=== PATIENT | male | born 1940 | race Caucasian/White ===

== ENCOUNTER 2018-09-24 10:45 | Observation (INO) | payer BC ==
[2018-09-24] MEDS ORDERED: NS 0.9% 1000 ML** 1,000 ML IV ONE (10:59)
[2018-09-24] MEDS ORDERED: Aspirin 81 mg CHEW TAB* 81 MG TAB.CHEW PO ONE (10:59)
--- NOTE | 2018-09-24 11:04 | ED ---
Syncope/Near Syncope - HPI Summary HPI Summary: This patient is a 78 year old M brought to ED via EMS with a chief complaint of chest pain and syncope since 1000 this morning. Patient was sitting at a table at [employer] when per his he slumped over, was really pale, and seemed to be gagging. She states he had a little bit of cereal this morning. The patient does not remember the syncopal event. Per EMS, bystander gave him NTG after the event and BP was 70s/40s. Patient declined aspirin by EMS as he did not want to chew the tablet. When he passed out, bystanders stated they could not detect a pulse and the patient was not breathing. Patient had an AR 10 years ago and a triple bypass at [facility]. He does not use O2 at home. The last time patient saw a mechanical reliability engineer was a couple years ago. Patient arrives in ED at 1045. Dr Waterman is at bedside at 1048. Patient reports chest pain starting at [facility] this morning but no pain last night. Patient denies chest pain in the room. The patient rates the pain 0/10 in severity. Symptoms aggravated by nothing. Symptoms alleviated by nothing. PMHx of HTN and AR 10 years ago but no DM. PSHx triple bypass following AR. Patient does not drink alcohol, use substances, or smoke tobacco. - History Of Current Complaint Hx Obtained From: Patient, Family/Bakery Associate, EMS Onset/Duration: Sudden Onset, Resolved Timing: Frequency Of Episodes - 1 Context: Witnessed, Loss Of Consciousness Activity At Onset: At Rest - Sitting at table Associated Head Trauma: No Aggravating Factor(s): Nothing Alleviating Factor(s): Nothing Associated Signs And Symptoms: Chest Pain - Resolved in room, Other - Pale and gagging, per - Allergies/Home Medications Allergies/Adverse Reactions: Allergies Allergy/AdvReac Type Severity Reaction Status Date / Time No Known Allergies Allergy Verified 09/24/18 11:09 Home Medications: Home Medications Amlodipine Besylate [Norvasc] 10 mg PO DAILY 09/24/18 [History Confirmed ] Carvedilol 6.25 mg PO BID 09/24/18 [History Confirmed 09/24/18] Isosorbide Mononitrate [Isosorbide Mononitrate ER] 240 mg PO DAILY 09/24/18 [ History Confirmed 09/24/18] Levothyroxine Sodium 50 mcg PO DAILY 09/24/18 [History Confirmed 09/24/18] Metformin HCl 500 mg PO DAILY 09/24/18 [History Confirmed 09/24/18] Rosuvastatin Calcium 20 mg PO DAILY 09/24/18 [History Confirmed 09/24/18] Spironolactone 25 mg PO DAILY 09/24/18 [History Confirmed 09/24/18] PMH/Surg Hx/FS Hx/Imm Hx Endocrine/Hematology History: Reports: Hx Diabetes Cardiovascular History: Reports: Hx Hypertension Denies: Hx Pacemaker/ICD, Other Cardiovascular Problems/Disorders - Social History Alcohol Use: None Hx Substance Use: No Substance Use Type: Reports: None Hx Tobacco Use: No Smoking Status (MU): Never Smoked Tobacco Review of Systems ENT: Other - Gagging Positive: Chest Pain Skin: Other - Pale Positive: Syncope All Other Systems Reviewed And Are Negative: Yes Physical Exam - Summary Physical Exam Summary: Appearance: Well appearing, no pain distress Skin: warm, dry, reflects adequate perfusion Head/face: normal Eyes: EOMI, TIANA ENT: normal Neck: supple, non-tender Respiratory: CTA, breath sounds present Cardiovascular: bradycardia Abdomen: non-tender, soft Musculoskeletal: normal, strength/ROM intact Neuro: normal, sensory motor intact, A&Ox3 GCS: 15 Triage Information Reviewed: Yes Vital Signs On Initial Exam: Initial Vitals Pulse Resp BP Pulse Ox 42 13 119/70 96 09/24/18 10:58 09/24/18 10:58 09/24/18 10:58 09/24/18 10:58 Vital Signs Reviewed: Yes Diagnostics - Laboratory Result Diagrams: 09/24/18 11:06 09/24/18 11:06 Lab Statement: Any lab studies that have been ordered have been reviewed, and results considered in the medical decision making process. - Radiology CXR Radiology Interpretation Completed By: Radiologist Summary of Radiographic Findings: Cardiomegaly without evidence for pulmonary edema. Dr. Waterman has reviewed this radiology report. - CT Brain CT Interpretation Completed By: ED Physician Summary of CT Findings: 1. No acute intracranial process evident. 2. Involutional change, chronic small vessel ischemic disease, and chronic appearing small RIGHT basal ganglia and LEFT caudate head lacunar infarcts, and chronic appearing larger bilateral cerebellar infarcts. Dr. Waterman has reviewed this radiology report. - EKG 1046 Cardiac Rate: Bradycardia - 41 BPM EKG Rhythm: Sinus Bradycardia Summary of EKG Findings: Sinus bradycardia at 41 BPM, ST changes in inferior leads. Re-Evaluation - Re-Evaluation First Eval Re-Evaluation Time: 12:28 Comment: Discussed results with patient. Patient will be admited to [facility] for further cardiology workup. Patient understands and agrees with this plan. Course/Dx Course Of Treatment: This patient is a 78 year old M brought to ED via EMS with a chief complaint of chest pain and syncope since 1000 this morning. Patient arrives in ED at 1045. Dr. Waterman is at bedside at 1048. Patient received NTG DIN[facility] BRAKEMAN. EKG reveals sinus bradycardia at 41 BPM, ST changes in inferior leads. In the ED course, patient received aspirin and fluids. Consult with Dr. Kumar, mechanical reliability engineer, requested at 1105. Consulted with Dr. Kumar at 1118 who agrees that the EKG reveals no STEMI. Blood work obtained. Brain CT revealed 1. No acute intracranial process evident. 2. Involutional change, chronic small vessel ischemic disease, and chronic appearing small RIGHT basal ganglia and LEFT caudate head lacunar infarcts, and chronic appearing larger bilateral cerebellar infarcts. CXR revealed cardiomegaly without evidence for pulmonary edema. I ruled out acute coronary syndrome (ACS). I discussed the patient case with Dr. Krishna Real, hospitalist, who accepted the patient for admission to [facility] for further cardiology workup. The patient will be admitted with diagnosis of syncope, symptomatic bradycardia, and hypotension. I discussed results with patient. The patient agrees with this plan. - Diagnoses Differential Diagnosis/HQI/PQRI: Positive: Cerebral Vascular Accident, Coronary Artery Disease, Dysrhythmia, Hypovolemia, Myocardial Infarction, Vasovagal Episode Provider Diagnoses: Syncope, Symptomatic bradycardia, Hypotension - Physician Notifications Discussed Care of Patient With: Donna Kumar Time Discussed With Above Provider: 11:18 Instructed by Provider To: Other - Dr. Kumar agrees that the EKG reveals no STEMI. 1225: consulted with Dr. Real, hospitalist, who accepted the patient for admission to [facility] for further cardiology workup. - Critical Care Time Critical Care Time: 30-74 min - 30 min Discharge - Sign-Out/Discharge Documenting (check all that apply): Patient Departure - Admit Patient Received Moderate/Deep Sedation with Procedure: No - Discharge Plan Condition: Good Disposition: ADMITTED TO [facility] Referrals: No Primary Care Phys,NOPCP [Primary Care Provider] - - Billing Disposition and Condition Condition: GOOD Disposition: Admitted to [facility] - Attestation Statements Document Initiated by Yousuf: Yes Documenting Scribe: Lavon Chaudhari Provider For Whom Yousuf is Documenting (Include Credential): Chavo Waterman MD Scribe Attestation: ILavon, scribed for Chavo Waterman MD on 09/24/18 at 1259. Scribe Documentation Reviewed: Yes Provider Attestation: The documentation as recorded by the mariselaibLavon abdul accurately reflects the service I personally performed and the decisions made by me, Chavo Waterman MD Status of Scribe Document: Viewed
[2018-09-24 11:13] LABS: ABS Basophils 0.1 10^3/ul (0-0.2); ABS Eosinophils 0.3 10^3/ul (0-0.6); ABS Lymphocytes 1.2 10^3/ul (1.0-4.8); ABS Monocytes 0.7 10^3/ul (0-0.8); ABS Neutrophils 8.8 10^3/ul (1.5-7.7); Eosinophil % 2.3 %; Hematocrit 36 % (42-52); Hemoglobin 11.3 g/dL (14.0-18.0); Lymphocyte % 10.9 %; Mean Corpuscular HGB Conc 31 g/dL (31-36); Mean Corpuscular Hemoglobin 24 pg (27-31); Mean Corpuscular Volume 78 fL (80-94); Mean Platelet Volume 7.6 fL (7.4-10.4); Platelet Count 290 10^3/uL (150-450); Red Blood Count 4.63 10^6 /uL (4.18-5.48); Red Cell Distribution Width 19 % (10.5-15)
[2018-09-24 11:30] LABS: Albumin/Globulin Ratio 1.5 (1-3); BUN/Creatinine Ratio 10.9 (8-20); Calcium 8.8 mg/dL (8.6-10.3); EGFR African American 49.2 (>60); EGFR Non-African American 40.7 (>60); Globulin 2.7 g/dL (2-4); Magnesium 2.3 mg/dL (1.9-2.7); Total Bilirubin 0.6 mg/dL (0.2-1.0); Total Protein 6.7 g/dL (6.4-8.9)
[2018-09-24 11:32] LABS: Potassium 5.3 mmol/L (3.5-5.0); Troponin I 0.01 ng/mL (<0.04)
[2018-09-24 11:55] LABS: Activated Partial Thrombo Time 25.7 seconds (26.0-36.3); INR 1.03 (0.82-1.09)
[2018-09-24] MEDS ORDERED: Enoxaparin(*) 40 MG/0.4 ML SYR SUBCUT SCH (14:00)
--- NOTE | 2018-09-24 14:07 | HP ---
History of Present Illness - History of Present Illness Reason for Visit: syncope History of Present Illness: Patient is 78 year old man with history of coronary artery disease, who was seated in [employer] this morning when he suddenly slumped over in his chair. He has no memory of this, but his was present, she states he was unconscious for at least 30 seconds. He states he may have had some chest discomfort prior to the syncope. When he was lowered to ground, and EMS arrived, they found him with systolic BP around 70 and HR around 40. He is poor historian, but he and deny recent medication changes. He has not seen amusement machine mechanic since 2018, and cannot remember that doctor's name. He did go to the [facility] clinic in [place], and had cardiac testing ordered in June that was never completed. Patient reports arthritis pain in LT knee, which he keeps coming back to as possible cause of syncope. PCP: Shahrzad Abrams at NH in [place] - Past Medical History Cardiac: CAD Pulmonary: Asthma SQL ENGINEER: Dementia - noted in last 6 months Musculoskeletal: Osteoarthritis - LT knee, severe ENT: Allergic rhinitis Endocrine: Other - impaired fasting glucose - Past Surgical History Past Surgical History: CABG - 2008, [facility], Dr. 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 Alcohol: None Drugs: None Lives: With Family - , 3 children Review of Systems - Measurements Intake and Output: Intake and Output Last 24 Hours 09/22/18 09/23/18 09/24/18 09/25/18 06:59 06:59 06:59 06:59 Intake Total 1000 Balance 1000 Weight 86.183 kg Intake: IV Fluids 1000 - Review of Systems General Comments: poor historian Constitutional Symptoms: Positive: Weakness Dermatology: Positive: Normal HEENT: Positive: Normal Eyes: Positive: Normal Thyroid: Positive: Normal Pulmonary: Positive: Normal Cardiology: Positive: Chest Pain Negative: Palpitations Gastroenterology: Positive: Normal Negative: Nausea, Vomiting, Diarrhea Genital - Urinary: Positive: Normal Musculoskeletal: Positive: Joint Pain, Arthritis Endocrinology: Positive: Hyperglycemia Neurology: Positive: Change in Memory, Hx of Stroke\TIA Psychiatry: Positive: Normal Objective Active Medications: Home Medications, reviewed with [facility] Amlodipine Besylate (Norvasc Tab*) 10 mg PO DAILY [facility] Isosorbide Mononitrate (Imdur Er Tab*) 240 mg PO DAILY [facility] Levothyroxine Sodium (Synthroid Tab*) 50 mcg PO DAILY [facility] Metformin HCl (Glucophage*) 500 mg PO DAILY [facility] Rosuvastatin Calcium (Crestor (Nf)) 20 mg PO QPM [facility] Spironolactone (Aldactone Tab*) 25 mg PO DAILY [facility] Carvedilol 6.25 mg PO BID 09/24/18 Multivitamin with Minerals [One Daily Complete] 1 tab PO DAILY 09/24/18 Vital Signs - 8 hr 09/24/18 09/24/18 09/24/18 10:58 11:07 11:14 Temperature 35.8 C Pulse Rate 42 53 41 Respiratory 13 16 14 Rate Blood Pressure 119/70 119/70 107/60 (mmHg) O2 Sat by Pulse 96 96 94 Oximetry 09/24/18 09/24/18 09/24/18 13:00 13:19 13:24 Temperature Pulse Rate 52 50 51 Respiratory 21 17 14 Rate Blood Pressure 110/63 119/68 (mmHg) O2 Sat by Pulse 97 98 97 Oximetry 09/24/18 09/24/18 13:28 13:33 Temperature Pulse Rate 54 56 Respiratory 18 Rate Blood Pressure 118/67 118/67 (mmHg) O2 Sat by Pulse 98 Oximetry Oxygen Devices in Use Now: None Appearance: no acute distress Eyes: No Scleral Icterus Ears/Nose/Mouth/Throat: NL Teeth, Lips, Gums Neck: NL Appearance and Movements; NL JVP, Trachea Midline Respiratory: Symmetrical Chest Expansion and Respiratory Effort, Clear to Auscultation Cardiovascular: NL Sounds; No Murmurs; No JVD, RRR, - - absent DP pulses Abdominal: NL Sounds; No Tenderness; No Distention, No Hepatosplenomegaly Lymphatic: No Cervical Adenopathy Extremities: No Edema Skin: No Rash or Ulcers Neurological: Alert and Oriented x 3, - - tangential historian Lines/Tubes/Other Access: Clean, Dry and Intact Peripheral IV Nutrition: Taking PO's Result Diagrams: 09/24/18 11:06 09/24/18 11:06 Additional Lab and Data: Laboratory Tests 09/24/18 09/24/18 09/24/18 11:06 11:06 11:06 INR (Anticoag Therapy) 1.03 APTT 25.7 L Glucose 262 H Lactic Acid 1.7 Magnesium 2.3 Troponin I 0.01 TSH 8.03 H Diagnostic Imaging: CXR: cardiomegaly, no infiltrates Head CT: old lacunes, involutional changes EKG Data: bradycardic, [address] elevations III, aVF, T-wave inversion I, aVL, flat T-waves V5-6 Assess/Plan/Problems-Billing Assessment: 78 year old man with syncope in setting of bradycardia - Patient Problems (1) Syncope and collapse Current Visit: Yes Status: Acute Priority: High Code(s): R55 - SYNCOPE AND COLLAPSE SNOMED Code(s): 565997644 Comment: -Differential normally includes tachy or rasheed arrhythmia, but clearly has symptomatic bradycardia. Differential also includes seizure, vagal episode. -Will observe on telemetry, hold coreg. -Discussed with Dr. Kumar, she will see patient for consult (2) Dementia Current Visit: Yes Status: Acute Priority: Medium Code(s): F03.90 - UNSPECIFIED DEMENTIA WITHOUT BEHAVIORAL DISTURBANCE SNOMED Code(s): 80647366 Comment: -discussed with -will defer treatment to primary care (3) Coronary arteriosclerosis after coronary artery bypass grafting Current Visit: Yes Status: Acute Priority: Medium Code(s): I25.810 - ATHEROSCLEROSIS OF CABG W/O ANGINA PECTORIS SNOMED Code(s): 124685314640566 Comment: -Clinically stable from ischemic point of view -Will trend troponins due to EKG abnormalities -Will obtain records from [facility] system. (4) Hypothyroidism Current Visit: Yes Status: Acute Priority: Medium Code(s): E03.9 - HYPOTHYROIDISM, UNSPECIFIED SNOMED Code(s): 09946967 Comment: -Appears undertreated -Levothyroxine increased. (5) DVT prophylaxis Current Visit: Yes Status: Acute Priority: Low Code(s): Z29.9 - ENCOUNTER FOR PROPHYLACTIC MEASURES, UNSPECIFIED SNOMED Code(s): 670218544 Comment: -SC lovenox Status and Disposition: observation
[2018-09-24 14:08] LABS: TSH (Thyroid Stimulating Horm) 8.03 mcIU/mL (0.34-5.60)
[2018-09-24] MEDS ORDERED: Atorvastatin* 40 MG TAB PO SCH (18:00)
--- NOTE | 2018-09-24 20:35 | CONS ---
CC: Hospitalist Service; [facility] in [place], [place]. CARDIOLOGY CONSULTATION: DATE OF CONSULT: 09/24/18 REASON FOR CONSULTATION: Loss of consciousness and coronary artery disease. The patient's chief complaint is that he told he fainted. HISTORY OF PRESENT ILLNESS: Mr. Robb is a 78-year-old gentleman followed in the [facility] system and I do not have old records for him He has a history of multivessel bypass surgery at the [facility], per hospitalist report in 2008. The patient is a poor historian, has some trouble finding his words and very slow to respond. He admits he did not remember the events of this morning. He states he went to [facility]. He thinks he might have been given a nitroglycerin from another person with heart disease, but he is uncertain. Currently, he states he has some left sided chest pain and knee pain, and he told me he the knee pain is chronic in response to a beanbag heating pad. He tells me he was using the beanbag pad while at [facility]. The patient denies shortness of breath, nausea, diaphoresis or any other complaints at the time I talked to him. PAST MEDICAL HISTORY: The patient has a past medical history of coronary artery disease with bypass surgery in 2008. 1. Dementia. 2. Degenerative arthritis of the left knee. 3. Hyperglycemia. 4. Asthma. 5. Hypothyroid disease. 6. Dyslipidemia. MEDICATIONS: Outpatient medications obtained by calling [facility] include: 1. MultiVite 2. Aldactone 25 mg a day. 3. Crestor 20 mg a day. 4. Metformin 500 mg a day. 5. Levothyroxine 50 mcg a day. 6. Coreg 6.25 mg b.i.d. 7. Amlodipine 10 mg a day. 8. Isosorbide mononitrate 240 mg a day. Current inpatient medications include: 1. Amlodipine 10 mg a day, 2. Lipitor 40 mg a day. 3. Lovenox 40 mg q.24 hours. 4. Isosorbide 240 mg a day. 5. Levothyroxine 75 mcg a day. 6. Metformin 500 mg b.i.d. 7. Aldactone 25 mg a day. ALLERGIES: He has no known drug allergies. FAMILY HISTORY: Significant for early atherosclerotic heart disease with father and both brothers. SOCIAL HISTORY: Unable to be obtained directly from the patient, but according to Dr. Real's note when I believe his was there when he got this he was with 3 children. 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 REVIEW OF SYSTEMS: See history of present illness but no other complaints. No infection. He denies any recent changes in medication. He denies missing medications. He denies nausea, constipation, diarrhea, and trouble urinating. All other 11 point review of system was negative PHYSICAL EXAM: On exam, the patient is 5 feet 8 inches, weighs 190 pounds with a BMI of 29. Vital signs in the ambulance documented by the ambulance include blood pressure 91/46 with a pulse rate of 42, oxygen saturation 97%. Lowest blood pressure documented by the auto club travel counselor was 74/43 and a pulse of 39. Currently blood pressure 110/62, pulse is 52, oxygen saturation 98 on room air and he is afebrile. General Appearance: Short, very centripetally obese older gentleman lying at 30 degrees, appeared reasonably comfortable at rest. Psychologically, pleasant and cooperative, but very vague very slow to answer questions and clear expressive aphasia. Neurologically, see above. Oriented to the fact that he is in the hospital. I did not evaluate for time or person. Skin: Warm and dry, midline sternotomy scar well healed, no cyanosis. HEENT: Mucous membranes moist. Neck: Thick from obesity. Strong carotid pulses without audible bruit. Breath sounds were clear. No wheezing, rales or rhonchi. Coronary: S1, S2, regular, 2/6 murmur heard best in the left upper sternal border. Abdomen: Rotund, active bowel sounds, soft, nontender. No hepatosplenomegaly or masses appreciated. Lower extremities are free of edema. Musculoskeletal: Unable to reproduce left sided chest pain with palpation, nor was his knee tender to palpation. DIAGNOSTIC STUDIES/LAB DATA: A 12-lead ECG from the EMT shows sinus bradycardia with a long first degree AV block, incomplete right bundle branch block and flattened nonspecific ST changes. A 12-lead ECG done in the emergency room, 10:46 this morning shows sinus bradycardia 41 beats a minute, QRS axis -30, normal AV and IV conduction time. He has a R prime in V1. His QT interval is 437 milliseconds, corrected QTc is 444 milliseconds. Flattened T-waves and inverted T-waves in the lateral leads. No old EKGs to compare. Labs: White count 11, hemoglobin 11.3, hematocrit 36, mean cell volume 78, platelets 290. INR 1.03, PTT 26. Sodium 135, potassium 5.3, chloride 106, bicarb 23, glucose 262, BUN 18, creatinine 1.65. AST 13, ALT 12. TSH 8.03. Troponin #1 0.01, troponin #2 0.01, troponin #3 0.01. Chest x-ray from today shows cardiomegaly, no pulmonary edema Brain CT showed no acute process. It did show evidence of chronic small vessel disease and lacunar infarcts that appeared old. IMPRESSION AND PLAN: In summary, Mr. Robb is a 78-year-old gentleman with prior bypass surgery, atherosclerotic risks identified of diabetes, hypertension , morbid obesity, who had a witnessed syncopal episode at [facility] today of uncertain etiology. If the patient was hypotensive and bradycardic and is on medications that can lead to both of these. He is on a very high dose of Imdur and his medications also would be suggestive that he could have a cardiomyopathy. I agree with holding his Coreg for now. If his blood pressure is low, we could decrease his Imdur dose, but I would like to keep him. I agree with continuing medications for cardiomyopathy, spironolactone, his amlodipine dose may be able to be decreased as well. He may benefit from a pacemaker for sick sinus syndrome or tachy-rasheed syndrome , but I would like to see what his heart rate and blood pressure do off of Coreg prior to committing to pacer implantation as well as getting old medical records. Additionally, I would like to check his ejection fraction, evaluate for possible cardiomyopathy. For now, other than adjusting medications to optimize blood pressure and heart rate and checking an echo to evaluate ventricular function and valvular function , I have no additional acute recommendations. Additional recommendations will be made when these studies are available and old records are available. If the patient's pulse improves off Coreg I would recommend an out patient event monitor (external or implanted). Thank you for allowing me to assist in this very nice gentleman's care. [id number]/[facility] #: [id number] ISAEL
[2018-09-25] MEDS ORDERED: Al Hydrox/Mg Hydrox/Simet LIQ* 30 ML UDC PO PRN (00:44)
[2018-09-25] MEDS ORDERED: Levothyroxine TAB* 50 MCG TAB PO SCH (06:00)
[2018-09-25] MEDS ORDERED: Levothyroxine TAB* 75 MCG TAB PO SCH (06:00)
[2018-09-25 07:14] LABS: ABS Basophils 0.1 10^3/ul (0-0.2); ABS Eosinophils 0.1 10^3/ul (0-0.6); ABS Lymphocytes 1.5 10^3/ul (1.0-4.8); ABS Monocytes 0.8 10^3/ul (0-0.8); Eosinophil % 1.5 %; Hematocrit 33 % (42-52); Hemoglobin 10.5 g/dL (14.0-18.0); Lymphocyte % 15.3 %; Mean Corpuscular HGB Conc 32 g/dL (31-36); Mean Corpuscular Hemoglobin 25 pg (27-31); Mean Corpuscular Volume 77 fL (80-94); Mean Platelet Volume 7.9 fL (7.4-10.4); Platelet Count 245 10^3/uL (150-450); Red Blood Count 4.23 10^6 /uL (4.18-5.48); Red Cell Distribution Width 18 % (10.5-15); White Blood Count 9.5 10^3/uL (3.5-10.8)
[2018-09-25 07:39] LABS: BUN/Creatinine Ratio 16.4 (8-20); Calcium 8.4 mg/dL (8.6-10.3); EGFR African American 56.7 (>60); EGFR Non-African American 46.8 (>60); Potassium 4.3 mmol/L (3.5-5.0)
[2018-09-25] MEDS ORDERED: Spironolactone TAB* 25 MG PO SCH (09:00)
[2018-09-25] MEDS ORDERED: metFORMIN* 500 MG TAB PO SCH (09:00)
[2018-09-25] MEDS ORDERED: Isosorbide Mononitrate ER TAB* 60 MG PO SCH (09:00)
[2018-09-25] MEDS ORDERED: amLODIPine TAB* 5 MG PO SCH ×2 (09:00)
[2018-09-25] MEDS ORDERED: Levothyroxine TAB* 25 MCG TAB PO ONE (09:17)
--- NOTE | 2018-09-25 10:05 | ECHO ---
*[facility]* [place] [address] Fax #: [phone] Transthoracic Echocardiogram Patient: Clarisse, Height: 68.1 in / Hernan Gene 173 cm : 1940 Weight: 189.2 lb / Study Date: 09/25/2018 86 kg Age: 78 BP: 125 / 65 Gender: M BMI/BSA: 28.7 HR: 56 bpm kg/m^2 / 2.05 m^2 *Leasing Professional: Susan Hu [facility] *Referring Physician: * Donna Kumar MD *Reading Physician: * Donna Kumar MD Indications: Murmur. Syncope. History: Coronary artery disease. Risk factors: Dyslipidemia. Labs, prior tests, procedures, and surgery: Coronary artery bypass grafting. Conclusions Summary: 1. Left ventricle: The cavity size is at the upper limits of normal. Wall thickness is mildly to moderately increased. The estimated ejection fraction is 50-55%. Severe hypokinesis, focal at the apex of the inferior wall. 2. Right ventricle: Systolic function is normal. 3. Mitral valve: There is mild regurgitation. 4. Aortic valve: The valve is trileaflet with mild sclerosis and normal function. 5. Aorta: The proximal ascending aortic diameter is 3.6 cm, mildly dilated. 6. No prior echocardiogram to compare. Study data: Transthoracic echocardiogram. Procedure: Transthoracic echocardiography was performed. Image quality was fair. Complete 2D, spectral Doppler, and color flow Doppler. Location: Bedside. Patient status: Inpatient. Patient room number: 442 02. Rhythm: Bradycardia. Findings Left ventricle: The cavity size is at the upper limits of normal. Wall thickness is mildly to moderately increased. Systolic function is normal. The estimated ejection fraction is 50-55%. Regional wall motion abnormalities: Severe hypokinesis of the apical inferior myocardium. Seen on 2 chamber view. Doppler parameters are consistent with abnormal left ventricular relaxation (grade 1 diastolic dysfunction). Right ventricle: The cavity size is normal. Systolic function is normal. Left atrium: The atrium is mildly dilated. Right atrium: The atrium is normal in size. Mitral valve: The annulus is mildly calcified. The leaflets are mildly thickened. There is no evidence of stenosis. There is mild regurgitation. Aortic valve: The valve is trileaflet. The leaflets are mildly thickened. There is no evidence of stenosis. There is trivial regurgitation. Tricuspid valve: The leaflets are normal thickness. There is no evidence of stenosis. There is no significant regurgitation. Pulmonic valve: The leaflets are normal thickness. There is no evidence of stenosis. There is trivial regurgitation. Aorta: Aortic root: The aortic root is moderately dilated. Ascending aorta: The ascending aorta is mildly dilated. Aortic arch: The aortic arch is moderately dilated. Pericardium: There is no significant pericardial effusion. Systemic veins: Inferior vena cava: Not well visualized. Measurements Left ventricle Value Ref Right atrium Value Ref GURPREET, LAX 5.6 cm 4.2 - RA ID, major 4.7 cm ---- 5.8 RA ID, minor 4.4 cm ---- ESD, LAX (H) 4.1 cm 2.5 - Estimated RAP 3 mm Hg ---- 4.0 FS, LAX 27 % 25 - 43 Aortic valve Value Ref PW, ED, LAX (H) 1.4 cm 0.6 - Bao diam, ED 2.2 cm ---- 1.0 Peak v, S 1.5 m/sec ---- E', lat bao, TDI (L) 8.0 cm/sec >=10.0 VTI, S 29.0 cm ---- E/e', lat bao, TDI 9 -------- Mean grad, S 4.0 mm Hg ---- E', med bao, TDI (L) 5.0 cm/sec >=7.0 Peak grad, S 9.0 mm Hg ---- E/e', med bao, TDI 14 -------- E', avg, TDI 6.5 cm/sec -------- Mitral valve Value Ref E/e', avg, TDI 11 <=14 Peak E 0.7 m/sec ---- Peak A 0.9 m/sec ---- LVOT Value Ref Decel time 203 ms ---- Peak lizabeth, S 1 m/sec -------- Peak E/A ratio 0.78 ---- VTI, S 21.0 cm -------- Peak grad, S 4 mm Hg -------- Pulmonic valve Value Ref Mean grad, S 2 mm Hg -------- Peak v, S 0.6 m/sec ---- Peak grad, S 2.0 mm Hg ---- Ventricular septum Value Ref IVS, ED, LAX (H) 1.3 cm 0.6 - Aortic root Value Ref 1.0 Root diam 3.9 cm <4.2 Right ventricle Value Ref Ascending aorta Value Ref GURPREET, LAX 3.5 cm -------- AAo prox diam 3.6 cm ---- GURPREET minor ax, A4C 3.5 cm 1.9 - mid 3.5 Aortic arch Value Ref Arch diam 4.0 cm ---- Left atrium Value Ref LA ID 5.0 cm -------- ML dim, A4C 5.0 cm -------- SI dim, A4C 5.8 cm -------- Vol/bsa, ES, A/L (H) 41 ml/m^2 16 - 34 Legend: (L) and (H) fabián values outside specified reference range. Prepared and electronically signed by Donna Kumar MD 09/25/2018 10:05
--- NOTE | 2018-09-25 12:38 | DS ---
CC: Dr. Kumar DISCHARGE SUMMARY: DATE OF ADMISSION: DATE OF DISCHARGE: 09/25/18 HISTORY OF PRESENT ILLNESS: This 78-year-old man presented with history of syncope; he does not real ly remember this. He remembers feeling weak. He was sitting in christian. He had not had breakfast. He did take his morning medications. He was poorly or unresponsive. The ambulance was called and he remembers coming to the emergency room. He now feels fine. This never happened to him before. The rest of the history is detailed in the admission note. He was admitted through telemetry unit. Carvedilol was discontinued; he did not receive any here. Christopher abdul receives extra levothyroxine as his TSH was 8. His routine dose will be increased from 50 to 75 mc g daily. The patient had an echocardiogram. This showed normal ejection fraction. There was a question of po ssible small area of infarction, which may be related to his previous cardiac history. We did not pierre ve his old records available at this time. He will return to the [place] for further followup. Dr. Felicity bui was available for outpatient followup if the family would like to do that. FINAL DIAGNOSES: 1. Syncope and bradycardia, likely related to carvedilol. 2. Coronary artery disease, status post CABG in 2008. 3. Dementia. 4. Asthma. 5. Hypothyroidism. DISCHARGE MEDICATIONS: 1. Levothyroxine 75 mcg daily. 2. Spironolactone 25 mg daily. 3. Rosuvastatin 20 mg daily. 4. Amlodipine 10 mg daily. 5. Metformin 500 mg daily. 6. Isosorbide mononitrate 240 mg daily. 7. Multivitamin with minerals 1 daily. CONDITION ON DISCHARGE: Stable. DISPOSITION ON DISCHARGE: Discharge to home. [id number]/[facility] #: [id number]
[2018-09-25 12:50] VITALS: BP 123/64
[2018-09-26] MEDS ORDERED: Levothyroxine TAB* 100 MCG TAB PO SCH (06:00)
== END 2018-09-25 13:00 | disposition home or self-care (01) ==
LOC: ED 10:45 → MEDTELE 13:30
PROVIDERS: ADMIT Internal Medicine; ATTEND Internal Medicine
DX: R55 Syncope and collapse (principal); R00.1 Bradycardia, unspecified; I25.810 Atherosclerosis of coronary artery bypass graft(s) without angina pectoris; Z95.5 Presence of coronary angioplasty implant and graft; F03.90 Unspecified dementia, unspecified severity, without behavioral disturbance, psychotic disturbance, mood disturbance, and anxiety; J45.909 Unspecified asthma, uncomplicated; E03.9 Hypothyroidism, unspecified; I95.9 Hypotension, unspecified; E78.5 Hyperlipidemia, unspecified; E66.01 Morbid (severe) obesity due to excess calories; I25.2 Old myocardial infarction; E11.65 Type 2 diabetes mellitus with hyperglycemia
CPT/HCPCS: 36415; 70450; 71045; 80048; 80053; 83036; 83605; 83735; 83880; 84443; 84484; 85025; 85610; 85730; 93005; 93306; 96372; 99284; A9270-GY; G0378; J1650

== ENCOUNTER 2019-07-02 12:50 | Inpatient (IN) | payer MEDICARE ==
[2019-07-02] MEDS ORDERED: NS 0.9% 1000 ML** 1,000 ML IV ONE (12:53)
--- NOTE | 2019-07-02 12:53 | ED ---
Neurological HPI - HPI Summary HPI Summary: Luda andre called from the field by EMS at 1243, ETA 5 minutes. This patient is a 78 y/o male presenting to [facility] via EMS for possible stroke today. EMS reports patient's stated she couldn't get the patient to ambulate today. also noticed patient began to have slurred speech. Pt noticed right leg weakness that began last night. Last well known is at 1830 yesterday 07/02/19. Per EMS, fingerstick glucose is 244. Patient denies any pain , headache, chest pain, shortness of breath, fever. PMHx includes DM, HTN, HLD, hypothyroidism, triple bypass, ND. Home Medications Medication Instructions Recorded Confirmed Type Amlodipine Besylate [Norvasc] 10 mg PO DAILY 09/24/18 07/02/19 History Isosorbide Mononitrate [Isosorbide 120 mg PO DAILY 09/24/18 07/02/19 History Mononitrate ER] Multivitamin with Minerals [One 1 tab PO DAILY 09/24/18 07/02/19 History Daily Complete] Rosuvastatin Calcium 20 mg PO DAILY 09/24/18 07/02/19 History Ascorbic Acid TAB* [Vitamin C 500 mg PO DAILY 07/02/19 07/02/19 History TAB*] Aspirin EC TAB* [Ecotrin EC TAB*] 325 mg PO DAILY 07/02/19 07/02/19 History Atorvastatin* [Lipitor*] 40 mg PO DAILY 07/02/19 07/02/19 History Carvedilol TAB* [Coreg TAB*] 0.5 tab PO BID 07/02/19 07/02/19 History Lysine 500 mg PO DAILY 07/02/19 07/02/19 History [place]-3 Fatty Acids (Nf) [Fish Oil 1,000 mg PO BID 07/02/19 07/02/19 History (NF)] Potassium Chlor TAB* [Klor Con ER 20 meq PO DAILY 07/02/19 07/02/19 History TAB*] - History of Current Complaint Stated Complaint: LUAD ANDRE Hx Obtained From: Patient, Family/[facility] - , EMS Onset/Duration: Started hours ago, Still Present Timing: Constant Current Severity: Moderate Neurological Deficit Location: RUE, RLE Pain Intensity: 0 Pain Scale Used: 0-10 Numeric Character: Weak - right sided, Impaired Speech - SLURRED SPEECH Aggravating: Nothing Alleviating: Nothing Associated Signs and Symptoms: Positive: Weakness. Negative: Headache, Pain, Nausea/Vomiting, Fever, Chest Pain, Shortness of Breath - Additional Pertinent History Primary Care Physician: [id number] - Allergy/Home Medications Allergies/Adverse Reactions: Allergies Allergy/AdvReac Type Severity Reaction Status Date / Time No Known Allergies Allergy Verified 09/24/18 11:09 Home Medications: Home Medications Amlodipine Besylate [Norvasc] 10 mg PO DAILY 09/24/18 [History Confirmed ] Multivitamin with Minerals [One Daily Complete] 1 tab PO DAILY 09/24/18 [ History Confirmed 07/02/19] Rosuvastatin Calcium 20 mg PO DAILY 09/24/18 [History Confirmed 07/02/19] Ascorbic Acid TAB* [Vitamin C TAB*] 500 mg PO DAILY 07/02/19 [History Confirmed 07/02/19] Aspirin 81 mg CHEW TAB* [Aspirin Low Dose TAB*] 81 mg PO DAILY 07/02/19 [ History Confirmed 07/02/19] Carvedilol [Coreg] 6.25 mg PO BID 07/02/19 [History Confirmed 07/02/19] Fexofenadine HCl [Aller-Fex] 180 mg PO DAILY 07/02/19 [History Confirmed ] Isosorbide Mononitrate [Isosorbide Mononitrate ER] 240 mg PO DAILY 07/02/19 [ History Confirmed 07/02/19] Levothyroxine Sodium 75 mcg PO DAILY 07/02/19 [History Confirmed 07/02/19] Lysine 500 mg PO DAILY 07/02/19 [History Confirmed 07/02/19] Maringouin-3 Fatty Acids (Nf) [Fish Oil (NF)] 1,000 mg PO BID 07/02/19 [History Confirmed 07/02/19] Spironolactone TAB* [Aldactone TAB*] 25 mg PO DAILY 07/02/19 [History Confirmed 07/02/19] metFORMIN* [Glucophage 500 MG TAB *] 500 mg PO DAILY 07/02/19 [History Confirmed 07/02/19] PMH/Surg Hx/FS Hx/Imm Hx Endocrine/Hematology History: Reports: Hx Diabetes Cardiovascular History: Reports: Hx Hypertension, Other Cardiovascular Problems/ Disorders - ND 10 years ago. Denies: Hx Pacemaker/ICD Respiratory History: Reports: Hx Asthma, Hx Seasonal Allergies Musculoskeletal History: Reports: Hx Arthritis Sensory History: Reports: Hx Cataracts - reading glasses. Denies: Hx Contacts or Glasses, Hx Hearing Aid Opthamlomology History: Reports: Hx Cataracts - reading glasses. Denies: Hx Contacts or Glasses Neurological History: Reports: Hx Transient Ischemic Attacks (TIA) Denies: Hx Dementia, Hx Developmental Delay, Hx Headaches, Hx Migraine, Hx Nerve Disease, Hx Seizures, Hx Spinal Cord Injury - Surgical History Surgery Procedure, Year, and Place: Triple Bypass - Family History Known Family History: Positive: Cardiac Disease - Father with fatal ND, Brother with fatal ND - Social History Alcohol Use: None Hx Substance Use: No Substance Use Type: Reports: None Hx Tobacco Use: No Smoking Status (MU): Never Smoked Tobacco Review of Systems Negative: Fever Negative: Chest Pain Negative: Shortness Of Breath Negative: Vomiting, Nausea Positive: Weakness - right sided, Slurred Speech. Negative: Headache All Other Systems Reviewed And Are Negative: Yes Physical Exam - Summary Physical Exam Summary: VITAL SIGNS: Reviewed. GENERAL: Patient is an elderly and disheveled male who is lying comfortable in the stretcher. Patient is not in any acute respiratory distress. HEAD AND FACE: No signs of trauma. No ecchymosis, hematomas or skull depressions. No sinus tenderness. EYES: PERRLA, EOMI x 2, No injected conjunctiva, no nystagmus. No photophobia. EARS: Hearing grossly intact. Ear canals and tympanic membranes are within normal limits. MOUTH: Oropharynx within normal limits. NECK: Supple, trachea is midline, no adenopathy, no JVD, no carotid bruit, no c- spine tenderness, neck with full ROM. No meningeal signs, no Kernig's or brudzinskis signs. CHEST: Symmetric, no tenderness at palpation. LUNGS: Clear to auscultation bilaterally. No wheezing or crackles. CVS: Regular rate and rhythm, S1 and S2 present, no murmurs or gallops appreciated. ABDOMEN: Soft, non-tender. No signs of distention. No rebound, no guarding, and no masses palpated. Bowel sounds are normal. EXTREMITIES: FROM in all major joints, no edema, no cyanosis or clubbing. NEURO: Alert and slightly confused. Slight right sided weakness. SKIN: Dry and warm. GCS: 15 Triage Information Reviewed: Yes Vital Signs On Initial Exam: Initial Vitals Pulse Ox 94 07/02/19 12:54 Vital Signs Reviewed: Yes Procedures - Sedation Patient Received Moderate/Deep Sedation with Procedure: No Diagnostics - Laboratory Result Diagrams: 07/02/19 13:13 07/02/19 13:13 Lab Statement: Any lab studies that have been ordered have been reviewed, and results considered in the medical decision making process. - Radiology Chest XR Radiology Interpretation Completed By: Radiologist Summary of Radiographic Findings: IMPRESSION: No active cardiopulmonary disease. Dr. Mari has reviewed this report. - CT Brain CT CT Interpretation Completed By: Radiologist Summary of CT Findings: IMPRESSION: No acute intracranial pathology. 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 Preliminary findings were discussed with Dr. Mari in the [facility] Department at approximately 1:08 PM on July 02, 2019. Head/Neck CTA CT Interpretation Completed By: Radiologist Summary of CT Findings: IMPRESSION: 1. Atherosclerosis. 2. No aneurysm, vascular malformation, occlusion, or stenosis of the visualized intracranial circulation. 3. No internal carotid artery stenosis by nascet criteria. 4. Chronic small vessel ischemic change. Dr. Mari has reviewed this report. - EKG 13:16 Cardiac Rate: NL - at 62 bpm EKG Rhythm: Sinus Rhythm Summary of EKG Findings: EKG at 1316 shows sinus rhythm at a rate of [address] elevations. Q waves in leads II, III, and aVF. This EKG was interpreted and reviewed by ED physician. NIH Scale - NIH Scale Level of Consciousness: Alert/Keenly Responsive Ask Patient the Month and His/Her Age: Both Correct Ask Pt to Open/Close Eyes and Inspector Poising/Release Non-Paretic Hand: One Correctly Best Gaze (Only Horizontal Eye Movement): Normal Visual Field Testing: No Visual Loss Facial Paresis-Pt to Smile & Close Eyes or Grimace Symmetry: Minor Paralysis Motor Function - Right Arm: Drifts LT 10 seconds Motor Function - Left Arm: No Drift-Holds 10 Seconds Motor Function - Right Leg: No Drift-Holds 10 Seconds Motor Function - Left Leg: No Drift-Holds 10 Seconds Limb Ataxia-Must be out of Proportion to Weakness Present: Present in One Limb Sensory (Use Pinprick to Test Arms/Legs/Trunk/Face): Normal Best Language (Describe Picture, Name Items): Some Loss Dysarthria (Read Several Words): Normal Extinction and Inattention: No Abnormality Total Score: 5 Course/Dx - Course Course Of Treatment: Luda Andre called from the field by EMS at 1243, ETA 5 minutes. Patient arrives via EMS at 1250. Dr. Mari and Dr. Benitez, neurologist, immediately at bedside. Patient to CT at 1253. Dr. Christopher, radiologist, reports CT results at 1308. Patient returns from CT at 1310. Dr. Benitez, neurologist, recommends admitting patient for stroke. Assessment/Plan: Luda andre called from the field by EMS at 1243, ETA 5 minutes. This patient is a 78 y/o male presenting to [facility] via EMS for possible stroke today. EMS reports patient's stated she couldn't get the patient to ambulate today. also noticed patient began to have slurred speech. Pt noticed right leg weakness that began last night. Last well known is at 1830 yesterday 07/02/19. Per EMS, fingerstick glucose is 244. Patient denies any pain , headache, chest pain, shortness of breath, fever. PMHx includes DM, HTN, HLD , hypothyroidism, triple bypass, ND. In the ED course the patient was placed in a night monitor, IV access was obtained, IV fluids started. Luda zaid called. Dr. Feng at bedside. NIH score = 5. GCS 15. Head CT impression: No acute pathology. As per Dr. Feng. No TPA candidate. Recommends CTA of head and neck and admission to hospitalist. Past medical records reviewed. Blood test w/o a significant abnormality except for hemoglobin of 12.3, hematocrit of 36, creatinine of 1.24, glucose is 179, lactic acid is 2.6, calcium is 8.1, total protein is 6.1. Head/Neck CTA IMPRESSION: 1. Atherosclerosis. 2. No aneurysm, vascular malformation, occlusion, or stenosis of the visualized intracranial circulation. 3. No internal carotid artery stenosis by nascet criteria. 4. Chronic small vessel ischemic change. I discussed my physical exam and test results with Dr. Gudino from the hospitalist services and she agrees to admit the patient to her services. The patient is hemodynamically stable. - Diagnoses Provider Diagnoses: CVA (cerebral vascular accident), Renal insufficiency, Anemia During the Visit The Following Alert/Code Occurred: Code Andre - called from the field at 1243, ETA 5 minutes - Physician Notifications Discussed Care Of Patient With: Glynn Christopher Time Discussed With Above Provider: 13:08 Instructed by Provider To: Other - Dr. Christopher, radiologist, reports brain CT results. [1351] Dr. Gudino, hospitalist, accepted the patient for admission. - Critical Care Time Critical Care Time: 30-74 min Discharge ED - Sign-Out/Discharge Documenting (check all that apply): Patient Departure - Admit to [facility] - Discharge Plan Condition: Stable Disposition: ADMITTED TO [facility] - Billing Disposition and Condition Condition: STABLE Disposition: Admitted to [facility] - Attestation Statements Document Initiated by Yousuf: Yes Documenting Scribe: Isamar Toscano Provider For Whom Yousuf is Documenting (Include Credential): Desean Mari MD Scribe Attestation: Isamar Goyal, scribed for Desean Mari MD on 07/02/19 at 2053. Scribe Documentation Reviewed: Yes Provider Attestation: The documentation as recorded by the [email or web address] abdul accurately reflects the service I personally performed and the decisions made by me, Desean Mari MD Status of Scribe Document: Viewed
[2019-07-02] MEDS ORDERED: Iodixanol* (CONTRAST) 320 MG/ML 100 ML SDV IV ONE (13:10)
--- OUTSIDE RECORDS SUMMARY | 2019-07-02 13:14 | XMS REPORT | Continuity of Care Document ---
:1940 External Reference #:[id number] Author Name Digna Marina NP (transmitted by agent of provider Rica Ingram) Address [address] [facility] [place] [address] Care Team Providers Name Role Phone [facility] [place] Care Team Information Admissions Recruiter Mary Abrams FNP - Family Care Team Information Admissions Recruiter Problems Active Problems Provider Date Arteriosclerosis of autologous vein coronary Donna Kumar M.D. Onset: 2018 artery bypass graft with angina Social History Type Date Description Comments Sex Unknown Tobacco Use Start: Unknown Never Smoked Cigarettes Smoking Status Reviewed: 05/03/19 Never Smoked Cigarettes ETOH Use Denies alcohol use Tobacco Use Start: Unknown Patient has never smoked Recreational Drug Use Denies Drug Use Exercise Type/Frequency Exercises sporadically Allergies, Adverse Reactions, Alerts Description No Known Drug Allergies Medications Active Medications SIG Qnty Indications Ordering Provider Date Aspirin take 1 tablet by I25.729 Digna Marina NP 03/19/2019 81mg Chewtabs mouth daily Multivitamin Adult 1 by mouth every Unknown 02/19/2019 Tablets day Levothyroxine Sodium 1 by mouth every Unknown 02/19/2019 75mcg day Tablets Isosorbide Mononitrate 4 by mouth every Unknown 02/19/2019 ER day 60mg Tablets ER 24HR Amlodipine Besylate 1 by mouth every Unknown 02/19/2019 10mg day Tablets Carvedilol 1/2 by mouth Unknown 02/19/2019 6.25mg Tablets twice a day Nitroglycerin 1 sl q5mins x3 Unknown 02/19/2019 0.4mg Tablets as needed for Sub chest pain Rosuvastatin Calcium 1 by mouth every Unknown 02/19/2019 20mg day Tablets Spironolactone 1 by mouth every Unknown 02/19/2019 25mg Tablets day Metformin HCL 1 by mouth once Unknown 02/19/2019 500mg Tablets a day Salix 3 1 by mouth once Unknown 02/19/2019 1000mg Capsules a day Acetaminophen Extra 2 tabs by mouth Unknown Strength every 8 hours as 500mg Tablets needed for pain or fever ( took this morning prior to Nem 2 day 03/06/19) Medications Administered in Office Medication SIG Qnty Indications Ordering Provider Date Inj, Regadenoson, 0.1 MG Paulo Naranjo, DO [facility] 03/06/2019 Injection Technetium TC 99M Paulo Naranjo, DO [facility] 03/06/2019 Tetrofosmin, Per Unit Dose Up To 40 Millicuries Injection Technetium TC 99M Paulo Naranjo, DO [facility] 03/06/2019 Tetrofosmin, Per Unit Dose Up To 40 Millicuries Injection Immunizations Description No Information Available Vital Signs Date Vital Result Comment 05/03/2019 1:12pm Height 68 inches 5'8" Weight 197.00 lb without shoes Heart Rate 58 /min radial, skipped beats BP Systolic Sitting 116 mmHg Ra, reg cuff BP Diastolic Sitting 70 mmHg Ra, reg cuff BP Systolic Standing 126 mmHg Ra, reg cuff BP Diastolic Standing 72 mmHg Ra, reg cuff BMI (Body Mass Index) 30.0 kg/m2 Ejection Fraction 50% echo 03/05/19 03/19/2019 2:22pm Height 68 inches 5'8" Weight 197.50 lb with shoes Heart Rate 66 /min BP Systolic Sitting 134 mmHg Lue reg cuff BP Diastolic Sitting 90 mmHg Lue reg cuff BP Systolic Standing 140 mmHg Lue reg cuff BP Diastolic Standing 90 mmHg Lue reg cuff Respiratory Rate 16 /min BMI (Body Mass Index) 30.0 kg/m2 Ejection Fraction 50% date 03/05/19 echo Results Test Acquired Date Facility Test Result H/L Range Note CBC Auto 04/19/2019 [facility] White Blood 7.9 10^3/uL Normal 3.5-10.[address] [place] [address] [phone] Red Blood Count 4.40 10^6/uL Normal 4.18-5.48 Hemoglobin 12.4 g/dL Low 14.0-18.0 Hematocrit 38 % Low 42-52 Mean Corpuscular Volume 85 fL Normal 80-94 Mean Corpuscular Hemoglobin 28 pg Normal 27-31 Mean Corpuscular HGB Conc 33 g/dL Normal 31-36 Red Cell Distribution Width 17 % High 10-15 Platelet Count 288 10^3/uL Normal 150-450 Mean Platelet Volume 7.5 fL Normal 7.4-10.4 Abs Neutrophils 5.1 10^3/uL Normal 1.5-7.7 Abs Lymphocytes 1.7 10^3/uL Normal 1.0-4.8 Abs Monocytes 0.8 10^3/uL Normal 0-0.8 Abs Eosinophils 0.3 10^3/uL Normal 0-0.6 Abs Basophils 0.1 10^3/uL Normal 0-0.2 Abs Nucleated RBC 0.0 10^3/uL Granulocyte % 64.2 % Lymphocyte % 21.0 % Monocyte % 10.1 % Eosinophil % 3.8 % Basophil % 0.9 % Nucleated Red Blood Cells % 0.1 Comp Metabolic 04/19/2019 [facility] Sodium 137 mmol/L Normal 135-[address] [place] [address] [phone] Potassium 4.2 mmol/L Normal 3.5-5.0 Chloride 104 mmol/L Normal 101-111 Co2 Carbon Dioxide 29 mmol/L Normal 22-32 Anion Gap 4 mmol/L Normal 2-11 Glucose 92 mg/dL Normal 70-100 Blood Urea Nitrogen 18 mg/dL Normal 6-24 Creatinine 1.43 mg/dL High 0.67-1.17 BUN/Creatinine Ratio 12.6 Normal 8-20 Calcium 8.8 mg/dL Normal 8.6-10.3 Total Protein 6.5 g/dL Normal 6.4-8.9 Albumin 4.2 g/dL Normal 3.2-5.2 Globulin 2.3 g/dL Normal 2-4 Albumin/Globulin Ratio 1.8 Normal 1-3 Total Bilirubin 0.50 mg/dL Normal 0.2-1.0 Alkaline Phosphatase 63 U/L Normal 34-104 Alt 16 U/L Normal 7-52 Ast 16 U/L Normal 13-39 Egfr Non- 48.0 >60 Egfr 58.0 >60 1 Lipid Panel - 04/19/2019 [facility] Creatine 154 U/L Normal 10 -[address] Kinase(CK) [place] [address] [phone] Lipid Profile 04/19/2019 [facility] Triglycerides 218 2 (Trig/Chol/HD [address] mg/dL L) [place] [address] [phone] Cholesterol 128 mg/dL 3 HDL Cholesterol 29.7 mg/dL 4 LDL Cholesterol 55 mg/dL 5 1 Because ethnic data is not always readily available, this report includes an eGFR for both -Americans and non- Americans. The National Kidney Disease Education Program (NKDEP) does not endorse the use of the MDRD equation for patients that are not between the ages of 18 and 70, are , have extremes of body size, muscle mass, or nutritional status, or are non- or non-. According to the National Kidney Foundation, irrespective of diagnosis, the stage of the disease is based on the level of kidney function: Stage Description GFR(mL/min/1.73 m(2)) 1 Kidney damage with normal or decreased GFR 90 2 Kidney damage with mild decrease in GFR 60-89 3 Moderate decrease in GFR 30-59 4 Severe decrease in GFR 15-29 5 Kidney failure <15 (or dialysis) 2 Desirable: <150 Borderline High: 150-199 High: 200-499 Very High: >500 3 Desirable: <200 Borderline High: 200-239 High: >239 4 Low: <40 Desirable: 40-60 High: >60 5 Desirable: <100 Near Optimal: 100-129 Borderline High: 130-159 High: 160-189 Very High: >189 Procedures Date Code Description Status 03/06/2019 19276 Stress Test Completed 03/06/2019 94811 Myocardial Perfusion Imaging Tomographic (Spect) Multiple Completed Studies 03/05/2019 68216 ECHO Transthoracic, Real-Time 2D With Doppler And Color Completed Flow 02/20/2019 37979 EKG Tracing & Interpretation Completed Medical Devices Description No Information Available Encounters Type Date Location Provider Dx Diagnosis Office Visit 03/19/2019 [facility] Digna Marina, I25.729 Athscl autologous 2:30p [facility] VOCATIONAL REHABILITATION ADMINISTRATOR artery CABG w unsp angina pectoris E78.5 Hyperlipidemia, unspecified I10 Essential (primary) hypertension I71.2 Thoracic aortic aneurysm, without rupture E11.8 Type 2 diabetes mellitus with unspecified complications N18.9 Chronic kidney disease, unspecified Office Visit 02/27/2019 12:00p [facility] Donna Kumar, I25.729 Athscl Of [place] autologous artery CABG w unsp angina pectoris I10 Essential (primary) hypertension E78.5 Hyperlipidemia, unspecified R55 Syncope and collapse E11.8 Type 2 diabetes mellitus with unspecified complications R06.02 Shortness of breath Assessments Date Code Description Provider 05/03/2019 I25.729 Atherosclerosis of autologous artery Digna Thuman, VOCATIONAL REHABILITATION ADMINISTRATOR coronary artery bypass graft(s) with unspecified angina pectoris 05/03/2019 E78.5 Hyperlipidemia, unspecified Digna Thuman, VOCATIONAL REHABILITATION ADMINISTRATOR 05/03/2019 I10 Essential (primary) hypertension Digna Thuman, VOCATIONAL REHABILITATION ADMINISTRATOR 05/03/2019 I71.2 Thoracic aortic aneurysm, without Digna Thuman, VOCATIONAL REHABILITATION ADMINISTRATOR rupture 05/03/2019 N18.9 Chronic kidney disease, unspecified Digna Thuman, VOCATIONAL REHABILITATION ADMINISTRATOR 03/19/2019 I25.729 Atherosclerosis of autologous artery Digna Thuman, VOCATIONAL REHABILITATION ADMINISTRATOR coronary artery bypass graft(s) with unspecified angina pectoris 03/19/2019 E78.5 Hyperlipidemia, unspecified Digna Thuman, VOCATIONAL REHABILITATION ADMINISTRATOR 03/19/2019 I10 Essential (primary) hypertension Digna Thuman, VOCATIONAL REHABILITATION ADMINISTRATOR 03/19/2019 I71.2 Thoracic aortic aneurysm, without Digna Thuman, VOCATIONAL REHABILITATION ADMINISTRATOR rupture 03/19/2019 E11.8 Type 2 diabetes mellitus with Digna Thuman, VOCATIONAL REHABILITATION ADMINISTRATOR unspecified complications 03/19/2019 N18.9 Chronic kidney disease, unspecified Digna Thuman, VOCATIONAL REHABILITATION ADMINISTRATOR 03/06/2019 I25.10 Atherosclerotic heart disease of Donna Kumar M.D. [place] coronary artery without angina pectoris 03/06/2019 I25.10 Atherosclerotic heart disease of Paulo Naranjo DO [facility] [place] coronary artery without angina pectoris 03/05/2019 R06.02 Shortness of breath Donna Kumar M.D. 03/05/2019 R06.02 Shortness of breath Traveling ECHO 1 03/05/2019 I25.729 Atherosclerosis of autologous artery Traveling ECHO 1 coronary artery bypass graft(s) with unspecified angina pectoris 02/27/2019 I25.729 Atherosclerosis of autologous artery Donna Kumar M.D. coronary artery bypass graft(s) with unspecified angina pectoris 02/27/2019 I10 Essential (primary) hypertension Donna Kumar M.D. 02/27/2019 E78.5 Hyperlipidemia, unspecified Donna Kumar M.D. 02/27/2019 R55 Syncope and collapse Donna Kumar M.D. 02/27/2019 E11.8 Type 2 diabetes mellitus with Donna Kumar M.D. unspecified complications 02/27/2019 R06.02 Shortness of breath Donna Kumar M.D. 02/20/2019 R55 Syncope and collapse Zenon Chun M.D. 02/20/2019 Z95.5 Presence of coronary angioplasty Zenon Chun M.D. implant and graft 02/20/2019 Z95.1 Presence of aortocoronary bypass graft Zenon Chun M.D. Plan of Treatment 05/03/2019 - Digna Marina, AUREI25.729 Atherosclerosis of autologous artery coronary artery bypass graft(s) with unspecified anginapectorisFollow up:follow up with Dr. Kumar 6 months.Recommendations:I'm glad to hear your angina has improved by changing Imdur to 120mg by mouth twice a day. If yourchest pain starts to re occur or worsen between now and when you follow up in 6 months please call me. Continue all current medications SPEAK to your primary about going on a medication called Jardiance given it reduces mortality in patient's such as yourself with a known history of CAD andsystolic dysfunction OF note your renal disease ( kidney's) is stable however, you should talk to your primary about it given it is likely contributing to anemia. Ill differ that to your PCPE78.5 Hyperlipidemia, [id number] Essential ( primary) [id number] Thoracic aortic aneurysm, without ldaobnhT60.9 Chronic kidney disease, unspecified Functional Status Description No Information Available Mental Status Description No Information Available Referrals Description No Information Available
[2019-07-02 13:23] LABS: ABS Lymphocytes 0.4 10^3/ul (1.0-4.8); ABS Monocytes 1.3 10^3/ul (0-0.8); ABS Neutrophils 6.1 10^3/ul (1.5-7.7); Eosinophil % 0.1 %; Hematocrit 36 % (42-52); Hemoglobin 12.3 g/dL (14.0-18.0); Lymphocyte % 5.1 %; Mean Corpuscular HGB Conc 34 g/dL (31-36); Mean Corpuscular Hemoglobin 30 pg (27-31); Mean Corpuscular Volume 87 fL (80-94); Mean Platelet Volume 7.5 fL (7.4-10.4); Platelet Count 190 10^3/uL (150-450); Red Blood Count 4.11 10^6 /uL (4.18-5.48); Red Cell Distribution Width 17 % (10-15); White Blood Count 7.8 10^3/uL (3.5-10.8)
[2019-07-02] MEDS ORDERED: Clopidogrel TAB* 75 MG PO ONE (13:23)
[2019-07-02] MEDS ORDERED: Aspirin 81 mg CHEW TAB* 81 MG TAB.CHEW PO ONE (13:23)
[2019-07-02 13:45] LABS: Albumin 3.6 g/dL (3.2-5.2); Albumin/Globulin Ratio 1.4 (1-3); BUN/Creatinine Ratio 16.9 (8-20); Calcium 8.1 mg/dL (8.6-10.3); EGFR African American 68.4 (>60); EGFR Non-African American 56.5 (>60); Globulin 2.5 g/dL (2-4); HDL Cholesterol 25.2 mg/dL; Potassium 3.9 mmol/L (3.5-5.0); Total Bilirubin 0.5 mg/dL (0.2-1.0); Total Protein 6.1 g/dL (6.4-8.9)
[2019-07-02 13:47] LABS: Troponin I 0.02 ng/mL (<0.03)
[2019-07-02 13:50] LABS: Activated Partial Thrombo Time 30.8 seconds (26.0-38.0); INR 1.15 (0.82-1.09)
--- NOTE | 2019-07-02 14:32 | CONSULT ---
Consult Consult: Neurology Inpatient Consult Note NAME: MRN: Reason for consult: Neurology was consulted by activating deni mar (Dr. Mari ) for stroke. The history was obtained by the patient, spouse, and daughter. Chief complaint: right sided weakness History of Present Illness: Mr. 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 The patient's spouse was unable to get him up to walk today. He is usually independent on all activities of daily living. The patient has noticed weakness in the right leg as well. He has no trouble swallowing. He denied any headache, visual disturbance, or numbness sensation. He denied any headache. He denied any seizure like activity. He has chronic history of memory recall problems. He also has chronic intermittent knee pain. There is sick contact at home as his daughter had the flu last week. The patient had an episode of vomiting yesterday. Last known well time: 07/01/2019 [id number] Time of onset: 07/01/2019 at 1800 Deni mar: 12:43 (pre alert) 07/02/2019, patient arrived around 12:48 Decision not to give alteplase therapy: 12:50. The patient is outside the window. NIHSS: 5. Facial droop (1), drift on the right arm (2), drift on the right leg (1), dysarthria (1). Labs, Imaging and Other Diagnostics: Lactic acid 2.6. IMAGING: CT head without contrast 07/02/19: remote infarction in bilateral cerebellar and lenticulostriate branches. CTA head and neck with contrast 07/02/19: atheroslecrosis. No large vessel occlusion. Chronic small vessel ischemic changes. No ICA stenosis. Past Medical History: CAD s/p CABG, hypertension, dyslipidemia, arthritis in his knees, memory impairment. Family History: No family history of stroke or seizures. His brother of a heart attack. Social History: He is . 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 Denied alcohol or tobacco abuse. He is retired and no longer works. He walks without assistance. Medications: Amlodipine Besylate [Norvasc] 10 mg PO DAILY 09/24/18 [History Confirmed ] Isosorbide Mononitrate [Isosorbide Mononitrate ER] 120 mg PO DAILY 09/24/18 [ History Confirmed 07/02/19] Multivitamin with Minerals [One Daily Complete] 1 tab PO DAILY 09/24/18 [ History Confirmed 07/02/19] Rosuvastatin Calcium 20 mg PO DAILY 09/24/18 [History Confirmed 07/02/19] Ascorbic Acid TAB* [Vitamin C TAB*] 500 mg PO DAILY 07/02/19 [History Confirmed 07/02/19] Aspirin EC TAB* [Ecotrin EC TAB*] 325 mg PO DAILY 07/02/19 [History Confirmed ] Atorvastatin* [Lipitor*] 40 mg PO DAILY 07/02/19 [History Confirmed 07/02/19] Carvedilol TAB* [Coreg TAB*] 0.5 tab PO BID 07/02/19 [History Confirmed 07/02/19 ] Lysine 500 mg PO DAILY 07/02/19 [History Confirmed 07/02/19] Gallant-3 Fatty Acids (Nf) [Fish Oil (NF)] 1,000 mg PO BID 07/02/19 [History Confirmed 07/02/19] Potassium Chlor TAB* [Klor Con ER TAB*] 20 meq PO DAILY 07/02/19 [History Confirmed 07/02/19] Allergies No Known Allergies Allergy (Verified 09/24/18 11:09) Review of Systems: A 14-point ROS was obtained and otherwise negative except for what was mentioned in the HPI. Physical Exam: Vitals: Vital Signs - 12 hr Temp Pulse Resp BP Pulse Ox 07/02/19 13:11 99.8 F 65 18 162/85 97 General: ill appearing disheveled man in no distress. Head: normocephalic, without obvious abnormality Eyes: conjunctivae/corneas clear Neck: supple, symmetrical. No carotid bruit. No lymphadenopathy. Lungs: clear to auscultation bilaterally, non-labored CV: regular rhythm, S1, S2 normal, radial pulses palpable Extremities: normal range of motion with no cyanosis. Skin: no skin lesions or lacerations Psych: affect-flat Neurological examination: Mental status: awake; alert and oriented to person, place, time. He has psychomotor slowing. He has moderate dysarthria. He was unable to describe the picture provided or name objects. He was able to read single words but not sentences. I: not tested II, III, IV, : normal confrontation B/L, Pupils midrange and reactive to light , normal consensual response; extraocular muscles are intact; no ptosis; no conjugate or asymmetrical nystagmus V 1/2/3: sensation is intact on forehead, cheeks, and jaw region VII: no facial droop; facial symmetry while smiling & wrinkling of forehead; tight lid closure VIII: able to hear throughout the history process IX & X: symmetric palatal elevation XI: normal strength against resistance XII: tongue is symmetrical & midline with no atrophy or fasciculations Motor (R/L): right arm drift, but does not hit the bed at 10 seconds. Generalized proximal > distal motor weakness due to poor effort. He has diffuse upper and lower extremity 4/5 weakness on the right. Reflexes R L Brachioradialis 1+ 1+ Biceps 1+ 1+ Triceps 1+ 1+ Patella 1+ 1+ Ankle 0 0 Plantar extensor flexor Sensation is intact to light touch throughout. Absent vibration at the toes bilaterally. Coordination: normal finger to nose and rapid alternating movements. Gait & Station: deferred Assessment: Mr. Robb is a 78-year-old man who has history of hypertension, DMII, and dyslipidmia, who presented with dysarthria and right hemiparesis. 1. Suspect left MCA vascular territory ischemic infarction. - NIHSS: 5. - He is not a candidate for alteplase therapy since he's outside the therapeutic window - There is no LVO on CTA, thus he is not a candidate for mechanical thrombectomy 2. 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 He has no known clinical history of stroke. He is on aspirin and atorvastatin therapy at home. 3. Memory impairment. Suspect vascular dementia. 4. Reports history of bradycardia. 5. Mild lactic acidosis. There was no reported seizures. Recommendations: - Admit to the hospitalist team for stroke work-up - MRI brain without contrast (ordered) to assess for acute stroke in the left hemisphere. Other localization would be the left laverne, but he doesn't have any facial droop to explain this. - 2-D TTE to look for PFO or atrial thrombus - BP Goal: permissive hypertension with SBP goal between 140-<220 mmHg - Glucose goal: < 200 - Start aspirin 325 mg x 1 now, then 81 mg daily and Plavix 75 mg daily for 21 days. Then switch to Plavix since he was one aspirin before this presentation. - Please start him on IV fluids for 24 hours (Normal saline 75 cc/hr for the next 24 hours) after the CTA as he is at risk of developing an SHEREE. - Ordered B12, TSH, hemoglobin A1c levels - PT/OT/[employer] to evaluate and treat. Please document a bedside dysphagia screen - Repeat lactic acid level - Stroke education was provided - Neuro checks every 4 hours - Keep him on telemetry - VTE prophylaxis: SCDs Neurology will continue to follow. Discussed the above recommendations with Dr. Kamaljit Benitez MD Date: 07/02/2019 Time: 1732
[2019-07-02] MEDS ORDERED: Dextrose 50% Syringe 50 ML* 25 GM/50 ML SYRINGE IV PUSH PRN (15:11)
[2019-07-02] MEDS: Insulin LISPRO* 1 UNITS UNIT SUBCUT SCH ×2 (18:17→21:54)
[2019-07-02 18:19] LABS: TSH (Thyroid Stimulating Horm) 0.33 mcIU/mL (0.34-5.60)
--- NOTE | 2019-07-02 19:06 | HP ---
CC: Mary Abrams NP * HISTORY AND PHYSICAL: DATE OF ADMISSION: 07/02/19 PRIMARY CARE PROVIDER: Mary Abrams NP. CHIEF COMPLAINT: Slurred speech and weakness. HISTORY OF PRESENT ILLNESS: Mr. Robb is a 78-year-old male who has history of coronary artery disease, dementia, and diabetes who was brought to the emergency room for concerns of stroke. The patient's provides all of the history. She notes that yesterday the patient's daughter had what she described as a stomach flu. She was vomiting. At approximately 6 p.m. on 06/30, the patient began to vomit. She states he was shaking as this was going on. In the middle of the night when he tried to sit up to go to the bathroom, he was unable to get himself upright all the way. He was noted to be leaning to the right at that time. On the morning of admission, the patient's had to help get him up out of bed. She was able to get him up into a wheelchair; but, during that process, she noted that he was very weak on the right side. His speech was also noted to be slightly garbled and he was having word-finding difficulties. His pattern of speech was different from baseline. Because of this, she was concerned for stroke and had EMS bring the patient to the hospital. She also feels that the patient is struggling to breath though the patient denies any shortness of breath. The patient himself does not answer any questions that are not a yes-no even then he has a difficult time answering appropriately. PAST MEDICAL HISTORY: 1. CAD. 2. Asthma. 3. Dementia. 4. Severe osteoarthritis of the knees. 5. Diabetes. PAST SURGICAL HISTORY: CABG. MEDICATIONS: 1. Amlodipine 10 mg p.o. daily. 2. Ascorbic acid 500 mg p.o. daily. 3. Aspirin 81 mg p.o. daily. 4. Coreg 6.25 mg p.o. twice daily. 5. Fexofenadine 180 mg p.o. daily. 6. Fish oil 100 mg p.o. twice daily. 7. Imdur 240 mg p.o. daily. 8. Levothyroxine 75 mcg p.o. daily. 9. Lysine 500 mg p.o. daily. 10. Metformin 500 mg p.o. daily. 11. Multivitamin 1 tab p.o. daily. 12. Crestor 20 mg p.o. daily. 13. Spironolactone 25 mg p.o. daily. ALLERGIES: No known drug allergies. FAMILY HISTORY: The patient's mom had breast cancer, dad had coronary disease. The patient has 2 brothers who had coronary disease. SOCIAL HISTORY: The patient is a lifelong nonsmoker. He does not drink alcohol. 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 He is . He has 3 children. His is his healthcare proxy. REVIEW OF SYSTEMS: The patient had no fever. His appetite had been fine up until last evening. He denies shortness of breath. He does not complain of any chest pain. No abdominal pain. Obtaining the rest of the review of systems is limited due to the patient's very slow speech and word-finding difficulties. PHYSICAL EXAMINATION GENERAL: The patient is a well-developed, disheveled-appearing elderly male, sitting up in the stretcher, in no acute distress. VITAL SIGNS: Blood pressure 162/85, pulse 65, respirations 18, temp 99.8, O2 sat 97% on room air. HEENT: Pupils are equal. Extraocular muscles are intact. Oropharynx is clear. He is edentulous. There is no submandibular, cervical, or supraclavicular adenopathy. PULMONARY: Lungs are clear to auscultation bilaterally anteriorly. HEART: Normal S1 and S2. Regular rate and rhythm. I do not appreciate any murmurs. There is no lower extremity edema. ABDOMEN: Bowel sounds present. Abdomen is soft, nontender, nondistended. MUSCULOSKELETAL: There are no obvious joint deformities. NEUROLOGIC: The patient's speech is mildly dysarthric. He appears to have word - finding difficulties and very slowed speech at this time. Strength in the right upper extremity is 4-/5. Left upper extremity strength is 5/5. Right lower extremity strength is 4/5. Left lower extremity strength is 5/5. PSYCH: The patient is alert. He is oriented to person, place, and situation. SKIN: Visible areas of skin are warm and dry and without rash. DIAGNOSTIC DATA/LAB DATA: WBC 7.8, hemoglobin 12.3, hematocrit 36, platelets 190. INR 1.15. Sodium 136, potassium 3.9, chloride 105, CO2 24, BUN 21, creatinine 1.24, glucose 179, lactic acid 2.6, calcium 8.1. Bilirubin 0.5, AST 20, ALT 20, alk phos 53. Troponin 0.02. Albumin 3.6. Triglycerides 91, cholesterol 97, LDL 54, HDL 25. B12 pending, TSH pending. HbA1c pending. EKG reveals sinus rhythm with a first-degree AV block and nonspecific intraventricular conduction delay. CT brain: There are no acute intracranial findings. There is chronic small vessel ischemic change with bilateral cerebellar encephalomalacia consistent with remote infarct. CTA head and neck: There is evidence of atherosclerosis, no aneurysm, vascular malformation, occlusion or stenosis of the visualized intracranial circulation. There is no internal carotid artery stenosis. There is chronic small vessel ischemic change. Chest x-ray: No active cardiopulmonary disease. ASSESSMENT AND PLAN: Mr. Robb is a 78-year-old male with coronary artery disease, diabetes and dementia who presented to the emergency room with complaints of dysarthric speech, word-finding difficulties and right-sided weakness and is being admitted for a probable left middle cerebral artery territory cerebrovascular accident. 1. 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 The patient has already received full strength aspirin and Plavix in the emergency room. He is to undergo MRI of the brain as well as transthoracic echocardiogram. He will be monitored on telemetry. 2. Neuro checks q.4 hours have been ordered. A bedside swallow evaluation screen has been ordered and if he passes he will be given a diet. If he fails, he will be n.p.o. at which time we will need to consider how to administer his medications. The patient will need PT and OT evaluations. 3. Type 2 diabetes. The patient is typically on metformin. However, this is being held due to receiving contrast for his CTA. Since this is being held, he will be on lispro sliding scale a.c., h.s. 4. Coronary artery disease. We will continue aspirin and Plavix as well as Coreg, Imdur, and statin. He typically takes Crestor at home, this will be auto -sub to Lipitor. 5. Hypothyroidism. We will continue Synthroid 75 mcg p.o. daily. TSH is pending. 6. Lactic acidosis. The patient's lactic acid is mildly elevated at 2.6. I questioned if this may be related to dehydration from vomiting last evening. A followup lactic acid will be obtained in approximately 1 hour. 7. DVT prophylaxis. According to the Adult Thrombosis Prophylaxis Risk Factor Assessment Guide, the patient has a total risk factor score of 9 making him the highest risk. He will be on heparin 5000 units subcutaneous q.8 hours. 78 Code status is full. TIME SPENT: Sixty-five minutes was spent admitting this patient. [id number]/CPS #: [id number] ISAEL
[2019-07-02] MEDS: Carvedilol TAB* 6.25 MG PO SCH (21:43)
[2019-07-02] MEDS: CMCS: OMEGA-3 FATTY ACIDS (NF) 1,000 MG CAP PO SCH (21:49)
[2019-07-02] MEDS: Heparin VIAL(*) 5000 UNITS/ML VIAL (FIVE THOUSAND) SUBCUT SCH (21:54)
--- NOTE | 2019-07-03 02:29 | PN ---
Hospitalist Progress Note Date of Service: 07/03/19 Called to bedside for concerns of changes in neuro status. RN concerned that patient speech worse and worsening weakness to right arm. On exam patient with moderate dysarthria. Also noted from previous notes that patient has psychomotor slowing. Patient states he is in emblem and that it is 2020 and he knows his name. He is able to name clock, and paper. He is confused to month. ALso patient able to raise right arm off bed but drift is noted but does not hit the bed. He has 4/5 strength to the RUE 4 - proximally at deltoid. At this point his exam appears to be unchanged from neuro consult. I have recommend maintain sbp >140, DBP > 80, and maintaining HOB <30 degrees and to monitor for fever. will follow closely,
[2019-07-03] MEDS: Acetaminophen TAB* 325 MG PO PRN ×2 (04:34→22:07)
[2019-07-03 04:45] LABS: Influenza A Molecular POSITIVE (Negative)
[2019-07-03 05:05] LABS: ABS Lymphocytes 0.7 10^3/ul (1.0-4.8); ABS Monocytes 1.3 10^3/ul (0-0.8); ABS Neutrophils 4.3 10^3/ul (1.5-7.7); Eosinophil % 0.2 %; Hematocrit 37 % (42-52); Hemoglobin 12.4 g/dL (14.0-18.0); Lymphocyte % 11.2 %; Mean Corpuscular HGB Conc 34 g/dL (31-36); Mean Corpuscular Hemoglobin 30 pg (27-31); Mean Corpuscular Volume 87 fL (80-94); Mean Platelet Volume 7.8 fL (7.4-10.4); Nucleated Red Blood Cells % 0.1; Platelet Count 182 10^3/uL (150-450); Red Blood Count 4.21 10^6 /uL (4.18-5.48); Red Cell Distribution Width 17 % (10-15); White Blood Count 6.3 10^3/uL (3.5-10.8)
[2019-07-03 05:27] LABS: BUN/Creatinine Ratio 16.5 (8-20); Calcium 7.9 mg/dL (8.6-10.3); EGFR African American 66.5 (>60); Potassium 3.7 mmol/L (3.5-5.0)
[2019-07-03] MEDS: Levothyroxine TAB* 75 MCG TAB PO SCH (06:03)
[2019-07-03] MEDS: Oseltamivir CAP* 30 MG CAP PO SCH ×2 (06:03→22:07)
[2019-07-03] MEDS: Heparin VIAL(*) 5000 UNITS/ML VIAL (FIVE THOUSAND) SUBCUT SCH ×3 (06:06→22:16)
[2019-07-03 08:11] LABS: Urine Appearance Clear; Urine Bilirubin Negative (Negative); Urine Blood 1+ (Negative); Urine Color Yellow; Urine Glucose Negative (Negative); Urine Ketones Negative (Negative); Urine Nitrite Negative (Negative); Urine Protein 1+(30 mg/dL) (Negative); Urine Specific Gravity 1.032 (1.010-1.030); Urine Urobilinogen Negative (Negative)
[2019-07-03 08:19] LABS: Urine Bacteria Absent (Absent); Urine Red Blood Cell 1+(3-5/hpf) (Absent); Urine White Blood Cell Trace(0-5/hpf) (Absent)
[2019-07-03] MEDS: Spironolactone TAB* 25 MG PO SCH (08:46)
[2019-07-03] MEDS: Isosorbide Mononitrate ER TAB* 60 MG PO SCH (08:47)
[2019-07-03] MEDS: Multivitamins/Minerals TAB PO SCH (08:48)
[2019-07-03] MEDS: Atorvastatin* 40 MG TAB PO SCH (08:49)
[2019-07-03] MEDS: Carvedilol TAB* 6.25 MG PO SCH ×2 (08:50→22:06)
[2019-07-03] MEDS: Clopidogrel TAB* 75 MG PO SCH (08:50)
[2019-07-03] MEDS: amLODIPine TAB* 5 MG PO SCH (08:51)
[2019-07-03] MEDS: Insulin LISPRO* 1 UNITS UNIT SUBCUT SCH ×4 (08:55→22:14)
[2019-07-03] MEDS: Aspirin 81 mg CHEW TAB* 81 MG TAB.CHEW PO SCH (08:55)
[2019-07-03] MEDS: CMCS: OMEGA-3 FATTY ACIDS (NF) 1,000 MG CAP PO SCH ×2 (08:59→22:16)
[2019-07-03] MEDS ORDERED: Aspirin 81 mg CHEW TAB* 81 MG TAB.CHEW PO SCH (09:00)
[2019-07-03 09:13] LABS: Free T4 0.83 ng/dL (0.61-1.12)
--- NOTE | 2019-07-03 10:29 | PN ---
Subjective Date of Service: 07/03/19 Length of Stay: 1 Days Neurology is following for stroke. Interval History: He developed worsening right sided weakness last night. He seems to be swallowing fine according to his . He cannot move the right arm or leg today. Labs, imaging, and other diagnostic testing: WBC: 6.3 Platelets: 182 Sodium: 137 Creatinine: 1.27 Glucose: 142 Free T4: 0.83 Influenza A: positive CT head 07/01: no acute intracranial abnormality. CTA head and neck 07/01: no large vessel occlusion Brain MRI 07/02/2019: acute left pontine and cerebellar peduncle ischemic infarction 2D TTE 07/02/2019: pending. Review of Systems: Denied CP, SOB, or palpitations. Objective Active Medications: Acetaminophen (Tylenol Tab*) 650 mg PO Q6H PRN PRN Reason: FEVER/PAIN Last Admin: 07/03/19 04:34 Dose: 650 mg Amlodipine Besylate (Norvasc Tab*) 10 mg PO DAILY [facility] Last Admin: 07/03/19 08:51 Dose: 10 mg Aspirin (Aspirin 81 Mg Chew Tab*) 81 mg PO DAILY [facility] Last Admin: 07/03/19 08:55 Dose: 81 mg Atorvastatin Calcium (Lipitor*) 40 mg PO DAILY [facility] Last Admin: 07/03/19 08:49 Dose: 40 mg Carvedilol (Coreg Tab*) 6.25 mg PO BID [facility] Last Admin: 07/03/19 08:50 Dose: 6.25 mg Clopidogrel Bisulfate (Plavix Tab*) 75 mg PO DAILY [facility] Last Admin: 07/03/19 08:50 Dose: 75 mg Dextrose (D50w Syringe 50 Ml*) 12.5 gm IV PUSH .FOR FS < 60 - SS PRN PRN Reason: FS < 60 Fish Oil (Fish Oil (Nf)) 1,000 mg PO BID [facility]; Protocol Last Admin: 07/03/19 08:59 Dose: 1,000 mg Heparin Sodium (Porcine) (Heparin Vial(*)) 5,000 units SUBCUT Q8HR [facility] Last Admin: 07/03/19 06:06 Dose: 5,000 units Insulin Human Lispro (Humalog*) 0 units SUBCUT ACHS [facility]; Protocol Last Admin: 07/03/19 08:55 Dose: 2 units Isosorbide Mononitrate (Imdur Er Tab*) 240 mg PO DAILY [facility] Last Admin: 07/03/19 08:47 Dose: 240 mg Levothyroxine Sodium (Synthroid Tab*) 75 mcg PO DAILY@0600 [facility] Last Admin: 07/03/19 06:03 Dose: 75 mcg Multivitamins/Minerals (Theragran/Minerals Tab*) 1 tab PO DAILY [facility] Last Admin: 07/03/19 08:48 Dose: 1 tab Oseltamivir Phosphate (Tamiflu Cap*) 30 mg PO BID [facility] Stop: 07/07/19 21:01 Last Admin: 07/03/19 06:03 Dose: 30 mg Spironolactone (Aldactone Tab*) 25 mg PO DAILY [facility] Last Admin: 07/03/19 08:46 Dose: 25 mg Vital Signs 07/02/19 07/02/19 07/02/19 12:54 13:11 13:15 Temperature 99.8 F Pulse Rate 65 63 Respiratory 18 20 Rate Blood Pressure 162/85 162/85 (mmHg) O2 Sat by Pulse 94 97 96 Oximetry 07/02/19 07/02/19 07/02/19 14:00 15:00 15:28 Temperature 98.9 F Pulse Rate 60 59 58 Respiratory 16 18 Rate Blood Pressure 145/74 (mmHg) O2 Sat by Pulse 95 94 97 Oximetry 07/02/19 07/02/19 07/02/19 16:04 18:47 20:24 Temperature 100.0 F 97.8 F Pulse Rate 66 62 Respiratory 19 18 18 Rate Blood Pressure 126/76 140/72 (mmHg) O2 Sat by Pulse 95 98 Oximetry 07/02/19 07/03/19 07/03/19 23:45 00:49 03:35 Temperature 99.8 F 99.4 F 100.2 F Pulse Rate 68 65 67 Respiratory 20 20 20 Rate Blood Pressure 160/89 143/80 150/71 (mmHg) O2 Sat by Pulse 95 97 97 Oximetry 07/03/19 07/03/19 07:15 08:00 Temperature 97.9 F Pulse Rate 65 Respiratory 18 18 Rate Blood Pressure 143/76 (mmHg) O2 Sat by Pulse 95 94 Oximetry Intake and Output Last 24 Hours 07/01/19 07/02/19 07/03/19 07/04/19 06:59 06:59 06:59 06:59 Intake Total 0 360 Output Total 0 Balance 0 360 Weight 197 lb Intake: Oral 0 360 Output: [place] 0 Oxygen Devices in Use Now: None Neurology Exam: General: Well nourished, well developed, and in no acute distress HEENT: Normocephelic/atraumatic, sclera anicteric, mucous membranes moist Neck: Supple Chest: Clear to auscultation bilaterally Cardiovascular: Regular rate and rhythm without murmurs, rubs, gallops Extremities: No clubbing, cyanosis, or edema Neurological Findings: NIHSS: 12 Awake, alert, and oriented to person, place, and time. Speech: dysarthria Cranial Nerve: PERRL, EOM-I, right facial droop Motor: right hemiplegia. Moves the left arm and leg spontaneously. Sensation: intact to LT/PP bilaterally upper and lower extremities Deep Tendon Reflex: 1+ throughout. extensor plantar response on the right. Finger to nose on the left. Gait: deferred Result Diagrams: 07/03/19 04:48 07/03/19 04:48 Assessment/Plan Mr. Hernan Robb is a 78-year-old man who presented with sudden onset vomiting, nausea, and right hemiparesis on 07/02/2019. 1. Acute left brainstem ischemic stroke. Worsening of his stroke symptoms. This is expected for a lacunar stroke, but a hemorrhagic transformation should be evaluated. Etiology: small vessel ischemic stroke. We cannot entirely rule out cardio embolic stroke but this is less likely given that he had a stroke in the same vascular distribution on the left Superior cerebellar and AICA distribution. This would raise the suspicion of a proximal artery to artery emboli from proximal vertebral or basilar artery. He does have known calcification in the left vertebral artery which could explain an artery to artery embolic stroke. NIHSS: 12 Recommendations: - CT head without contrast to evaluate for hemorrhagic transformation of the infarct - Pending 2D TTE - Continue DAPT with aspirin and Plavix 75 mg for a total of 21 days. Then continue Plavix 75 mg monotherapy. - Continue statin therapy (LDL: 54) - PT/OT/AIR CREW OFFICER evaluate and treatment. He will need acute rehabilitation - Stroke education completed with the patient's spouse - DVT prophylaxis: SCDs 2. Influenza A- he was started on Oseltamivir. Continue supportive care. I will follow-up on the Echo and repeat CT head results. If normal, the patient will be pending a rehabilitation bed.
[2019-07-03] MEDS ORDERED: Perflutren Lipid Microsphere* 3 ML VIAL ONE (10:51)
--- NOTE | 2019-07-03 12:51 | ECHO ---
*[facility]* [place] [address] Fax #: [phone] Transthoracic Echocardiogram Patient: Hernan Robb : 1940 Study Date: 07/03/2019 Age: 78 Gender: M HR: 62 bpm Height: 68 in /172.7 cm BSA: 2.1 m^2 Weight: 197.6 lb /89.8 kg BMI: 30.1 kg/m^2 *Adjustment Examiner: * Ema Loomis RDCS RN *Referring Physician: * Vijaya Benitez *Reading Physician: * Ra Denise MD Indications: CVA. History: CAD with NV and CABG. Risk factors: Hypertension. Diabetes mellitus. Dyslipidemia. Conclusions Summary: - Left ventricle: Systolic function is at the lower limits of normal. The estimated ejection fraction is 50-55%. Hypokinesis of the basal-mid inferior myocardium seen in the A2C view. - Right ventricle: Systolic function is normal. - Ventricular septum: Ventricular septal wall motion has a postoperative appearance. - Mitral valve: There is trace to mild regurgitation. - Aortic valve: There is no evidence of stenosis. - Tricuspid valve: There is no significant regurgitation. - Pulmonary arteries: Systolic pressure cannot be accurately estimated. - Compared to study of 09/25/18, there is little change. Study data: Transthoracic echocardiogram. Procedure: Transthoracic echocardiography was performed. Image quality was fair. The study was technically limited due to body habitus. Intravenous Definity 4.5 ml was administered to enhance imaging. Complete 2D, spectral Doppler, and color flow Doppler. Location: Bedside. Patient status: Inpatient. Patient room number: 435. Rhythm: Normal sinus rhythm with PVCs. Findings Left ventricle: The cavity size is normal. Wall thickness is moderately increased. Systolic function is at the lower limits of normal. The estimated ejection fraction is 50-55%. Regional wall motion abnormalities: Hypokinesis of the basal-mid inferior myocardium seen in the A2C view. Doppler parameters are consistent with abnormal left ventricular relaxation (grade 1 diastolic dysfunction). Right ventricle: The cavity size is normal. Wall thickness is mildly increased. Systolic function is normal. Ventricular septum: Ventricular septal wall motion has a postoperative appearance. Left atrium: The atrium is normal in size. Right atrium: The atrium is normal in size. Atrial septum: No defect or patent foramen ovale is identified by color flow Doppler. There is no obvious shunting seen with the bubble study on Images 109 and 110. The quality of the imaging is suboptimal. Mitral valve: The leaflets are mildly thickened. There is no evidence of stenosis. There is trace to mild regurgitation. Aortic valve: The valve is trileaflet. The leaflets are mildly thickened. There is no evidence of stenosis. There is trace regurgitation. Tricuspid valve: Not well visualized. There is no significant regurgitation. Pulmonic valve: Not well visualized. There is mild regurgitation. Aorta: Aortic root: The aortic root is mildly dilated at 3.8 cm. Ascending aorta: The ascending aorta is mildly dilated at 3.9 cm. Aortic arch: The aortic arch is not dilated. Pericardium: There is no pericardial effusion. Pulmonary arteries: Not well visualized. Systolic pressure cannot be accurately estimated. Systemic veins: Inferior vena cava: Not well visualized. Measurements Left ventricle Value Ref Right atrium Value Ref GURPREET, LAX 4.7 cm 4.2 - ML dim, ES, A4C 4.3 cm 2.6 - 4.4 5.8 SI dim, ES, A4C 5.1 cm 3.4 - 5.3 ESD, LAX 3.3 cm 2.5 - Estimated RAP 8 mm Hg --------- 4.0 FS, LAX 30 % 25 - 43 Aortic valve Value Ref PW, ED (H) 1.5 cm 0.6 - Peak v, S 1.3 m/sec --------- 1.0 VTI, S 23.1 cm --------- IVS/PW, ED 1.11 -------- Mean grad, S 4.0 mm Hg --------- PW/ID, ED 0.31 -------- Peak grad, S 7.0 mm Hg --------- E', lat bao, TDI (L) 7.0 cm/sec >=10.0 LVOT/AV, VTI ratio 0.64 ---- ----- E/e', lat bao, TDI 6 -------- E', med bao, TDI (L) 5.0 cm/sec >=7.0 Mitral valve Value Ref E/e', med bao, TDI 9 -------- Peak E 0.43 m/sec ------- -- E', avg, TDI 6.0 cm/sec -------- Peak A 0.83 m/sec ------- -- E/e', avg, TDI 7 <=14 Decel time 277 ms ---- ----- Peak E/A ratio 0.52 --------- LVOT Value Ref Peak lizabeth, S 0.85 m/sec -------- Pulmonic valve Value Ref VTI, S 14.7 cm -------- Peak v, S 0.75 m/sec --------- Peak grad, S 3 mm Hg -------- Peak grad, S 2.3 mm Hg --------- Mean grad, S 2 mm Hg -------- Aortic root Value Ref Ventricular septum Value Ref Root diam 3.8 cm <4.2 IVS, ED (H) 1.6 cm 0.6 - 1.0 Ascending aorta Value Ref AAo AP diam, S 3.9 cm --------- Right ventricle Value Ref AW thickness, ED (H) 0.6 cm 0.1 - Aortic arch Value Ref 0.5 Arch diam 3.0 cm --------- GURPREET, LAX 2.6 cm -------- GURPREET minor ax, A4C (H) 3.6 cm 1.9 - Decending aorta Value Ref mid 3.5 Wang peak lizabeth 0.43 m/sec --------- Left atrium Value Ref SI dim ES, LAX 5.0 cm -------- ML dim, A4C 4.6 cm -------- SI dim, A4C 5.1 cm -------- Vol, ES, 2-p 59 ml -------- Vol/bsa, ES, 2-p 29 ml/m^2 16 - 34 Legend: (L) and (H) fabián values outside specified reference range. Prepared and electronically signed by Ra Denise MD 07/03/2019 12:50
[2019-07-03] MEDS ORDERED: Polyethylene Glycol 3350* 17 GM PACKET PO PRN (16:25)
[2019-07-03] MEDS ORDERED: Docusate CAP* 100 MG PO PRN (16:25)
[2019-07-03] MEDS ORDERED: Senna TAB 8.6 mg* TAB PO PRN (16:25)
[2019-07-03] MEDS ORDERED: Magnesium Hydroxide LIQ* 30 ML UDC PO PRN (16:25)
--- NOTE | 2019-07-03 17:17 | PN ---
Subjective Date of Service: 07/03/19 Interval History: Mr. Robb is laying in bed sleeping with at bedside. reports that patient was walking, talking, with mild dementia prior to CVA. Since, he has had R hemiparesis and intermittent difficulty with speech. He has wheezing and coughing intermittently and she reports he is sleeping more often than usual. Objective Active Medications: Acetaminophen (Tylenol Tab*) 650 mg PO Q6H PRN PRN Reason: FEVER/PAIN Last Admin: 07/03/19 04:34 Dose: 650 mg Amlodipine Besylate (Norvasc Tab*) 10 mg PO DAILY [facility] Last Admin: 07/03/19 08:51 Dose: 10 mg Aspirin (Aspirin 81 Mg Chew Tab*) 81 mg PO DAILY [facility] Last Admin: 07/03/19 08:55 Dose: 81 mg Atorvastatin Calcium (Lipitor*) 40 mg PO DAILY [facility] Last Admin: 07/03/19 08:49 Dose: 40 mg Carvedilol (Coreg Tab*) 6.25 mg PO BID [facility] Last Admin: 07/03/19 08:50 Dose: 6.25 mg Clopidogrel Bisulfate (Plavix Tab*) 75 mg PO DAILY [facility] Last Admin: 07/03/19 08:50 Dose: 75 mg Dextrose (D50w Syringe 50 Ml*) 12.5 gm IV PUSH .FOR FS < 60 - SS PRN PRN Reason: FS < 60 Docusate Sodium (Colace Cap*) 100 mg PO BID PRN PRN Reason: CONSTIPATION Fish Oil (Fish Oil (Nf)) 1,000 mg PO BID [facility]; Protocol Last Admin: 07/03/19 08:59 Dose: 1,000 mg Heparin Sodium (Porcine) (Heparin Vial(*)) 5,000 units SUBCUT Q8HR [facility] Last Admin: 07/03/19 14:31 Dose: 5,000 units Insulin Human Lispro (Humalog*) 0 units SUBCUT ACHS [facility]; Protocol Last Admin: 07/03/19 12:38 Dose: 2 units Isosorbide Mononitrate (Imdur Er Tab*) 240 mg PO DAILY [facility] Last Admin: 07/03/19 08:47 Dose: 240 mg Levothyroxine Sodium (Synthroid Tab*) 75 mcg PO DAILY@0600 [facility] Last Admin: 07/03/19 06:03 Dose: 75 mcg Magnesium Hydroxide (Milk Of Magnesia Liq*) 30 ml PO BID PRN PRN Reason: CONSTIPATION Multivitamins/Minerals (Theragran/Minerals Tab*) 1 tab PO DAILY [facility] Last Admin: 07/03/19 08:48 Dose: 1 tab Oseltamivir Phosphate (Tamiflu Cap*) 30 mg PO BID [facility] Stop: 07/07/19 21:01 Last Admin: 07/03/19 06:03 Dose: 30 mg Polyethylene Glycol/Electrolytes (Miralax (17 Gm Dose [place])) 17 gm PO DAILY PRN PRN Reason: CONSTIPATION Senna (Senokot 8.6 Mg Tab*) 1 tab PO BEDTIME PRN PRN Reason: CONSTIPATION Spironolactone (Aldactone Tab*) 25 mg PO DAILY [facility] Last Admin: 07/03/19 08:46 Dose: 25 mg Vital Signs: Temp Pulse Resp BP Pulse Ox 98.3 F 63 16 134/73 94 07/03/19 14:14 07/03/19 14:14 07/03/19 14:14 07/03/19 14:14 07/03/19 14:14 Oxygen Devices in Use Now: None Appearance: Mr. Robb is an overweight, older white male who is laying in bed sleeping; he is somnolent and wakes to shaking; he falls asleep quickly and his speech is dysarthric and difficult to comprehend. Ears/Nose/Mouth/Throat: NL Teeth, Lips, Gums, Clear Oropharnyx, - - dry oral mucosa Neck: NL Appearance and Movements; NL JVP, Trachea Midline Respiratory: Symmetrical Chest Expansion and Respiratory Effort, - - end expiratory wheezing throughout b/l lung gutierrez Cardiovascular: NL Sounds; No Murmurs; No JVD, RRR, No Edema Abdominal: NL Sounds; No Tenderness; No Distention, No Hepatosplenomegaly Extremities: No Edema, No Clubbing, Cyanosis Neurological: - - moves L side without difficulty; no movement in R side; sleeping; wakes to touch, and falls asleep quickly Result Diagrams: 07/03/19 04:48 07/03/19 04:48 Assess/Plan/Problems-Billing Assessment: 78 yom PMHx CAD, DM, dementia presents with dysarthria, R hemiparesis and found to have acute L brainstem stroke; hospital course complicated by influenza A. - Patient Problems (1) CVA (cerebral vascular accident) Comment: -pontine infarct -neurology following; thank you for recommendations -repeat CT shows stable infarct -no PFO on echo -DAPT x21d then plavix only -PT, OT, ST; plan for [facility] -continue neuro checks (2) Influenza A Comment: -influenza A positive -continued cough with wheeze -add on duonebs q4h scheduled (3) Somnolence Comment: -increased somnolence today -repeat CT brain shows stable infarct -ABG, ammonia ordered to assess -possibly due to acute influenza (4) Lactic acidosis Comment: -resolved -suspected to be related to dehydration in setting of vomiting -possible that influenza contributed -pt also on metformin at home (hold while inpatient) -lactic WNL now (5) Diabetes mellitus Comment: -BG 130-140's -continue lispro ss -metformin on hold (6) CAD (coronary artery disease) Comment: -coreg, imdur, atorvastatin, aspirin (7) Abnormal TSH Comment: -mildly low TSH 0.33 -free T4 WNL -no further work up indicated at this time (8) Dementia Comment: -supportive care (9) DVT prophylaxis Comment: -HSQ (10) Full code status Status and Disposition: Inpatient. Discharge when stable. Planning for [facility] placement.
[2019-07-03] MEDS ORDERED: Albuterol/Ipratropium NEB.SOL* Albuterol 2.5 MG/Ipratropium 0.5 MG 3 ML INH SCH (19:00)
--- NOTE | 2019-07-04 01:00 | PN ---
Hospitalist Progress Note Date of Service: 07/04/19 called to bedside for difficultly to arouse. At bedside noted that patient will awaken to name however is apashic. Will not say name or any words. Note hemiplegia to the right side. However given change in speech with check ct brain to eval for and changes. ? if active flu and infection could be contributing to waxing and waning neuro exam. Will check bp as well. and recommend flat hob
[2019-07-04] MEDS: Albuterol/Ipratropium NEB.SOL* Albuterol 2.5 MG/Ipratropium 0.5 MG 3 ML INH SCH ×3 (01:33→14:02)
[2019-07-04] MEDS: Levothyroxine TAB* 75 MCG TAB PO SCH (05:53)
[2019-07-04] MEDS: Heparin VIAL(*) 5000 UNITS/ML VIAL (FIVE THOUSAND) SUBCUT SCH ×2 (05:54→15:08)
[2019-07-04 08:09] LABS: ABS Eosinophils 0.1 10^3/ul (0-0.6); Eosinophil % 1.1 %; Hematocrit 38 % (42-52); Hemoglobin 12.9 g/dL (14.0-18.0); Lymphocyte % 16.8 %; Mean Corpuscular HGB Conc 34 g/dL (31-36); Mean Corpuscular Hemoglobin 30 pg (27-31); Mean Corpuscular Volume 88 fL (80-94); Mean Platelet Volume 8.1 fL (7.4-10.4); Nucleated Red Blood Cells % 0.2; Platelet Count 170 10^3/uL (150-450); Red Blood Count 4.36 10^6 /uL (4.18-5.48); Red Cell Distribution Width 17 % (10-15); White Blood Count 6.1 10^3/uL (3.5-10.8)
[2019-07-04 08:29] LABS: BUN/Creatinine Ratio 19.7 (8-20); EGFR African American 66.5 (>60)
[2019-07-04] MEDS: Insulin LISPRO* 1 UNITS UNIT SUBCUT SCH ×3 (09:38→18:29)
--- NOTE | 2019-07-04 10:18 | PN ---
Subjective Date of Service: 07/04/19 Interval History: Mr. Robb is sitting up in bed. He denies any complaints today. He reports no BM in a few days. He denies cough, fever, chills, malaise. He continues to have R sided weakness. Overnight provider called to bedside for change in mentation. Upon arrival, patient was awake, alert, but speech was very dysarthric. Repeat CT breain shows chronic infarct, no acute findings. Objective Active Medications: Acetaminophen (Tylenol Tab*) 650 mg PO Q6H PRN PRN Reason: FEVER/PAIN Last Admin: 07/03/19 22:07 Dose: 650 mg Albuterol/Ipratropium (Duoneb (Albuterol 2.5 Mg/Ipratropium 0.5 Mg)) 1 neb INH [id number] AWAKE [facility] Last Admin: 07/04/19 07:02 Dose: 1 neb Amlodipine Besylate (Norvasc Tab*) 10 mg PO DAILY [facility] Last Admin: 07/03/19 08:51 Dose: 10 mg Aspirin (Aspirin 81 Mg Chew Tab*) 81 mg PO DAILY [facility] Last Admin: 07/03/19 08:55 Dose: 81 mg Atorvastatin Calcium (Lipitor*) 40 mg PO DAILY [facility] Last Admin: 07/03/19 08:49 Dose: 40 mg Carvedilol (Coreg Tab*) 6.25 mg PO BID [facility] Last Admin: 07/03/19 22:06 Dose: 6.25 mg Clopidogrel Bisulfate (Plavix Tab*) 75 mg PO DAILY [facility] Last Admin: 07/03/19 08:50 Dose: 75 mg Dextrose (D50w Syringe 50 Ml*) 12.5 gm IV PUSH .FOR FS < 60 - SS PRN PRN Reason: FS < 60 Docusate Sodium (Colace Cap*) 100 mg PO BID PRN PRN Reason: CONSTIPATION Last Admin: 07/03/19 22:07 Dose: 100 mg Fish Oil (Fish Oil (Nf)) 1,000 mg PO BID [facility]; Protocol Last Admin: 07/03/19 22:16 Dose: 1,000 mg Heparin Sodium (Porcine) (Heparin Vial(*)) 5,000 units SUBCUT Q8HR [facility] Last Admin: 07/04/19 05:54 Dose: 5,000 units Insulin Human Lispro (Humalog*) 0 units SUBCUT ACHS [facility]; Protocol Last Admin: 07/04/19 09:38 Dose: Not Given Isosorbide Mononitrate (Imdur Er Tab*) 240 mg PO DAILY [facility] Last Admin: 07/03/19 08:47 Dose: 240 mg Levothyroxine Sodium (Synthroid Tab*) 75 mcg PO DAILY@0600 [facility] Last Admin: 07/04/19 05:53 Dose: 75 mcg Magnesium Hydroxide (Milk Of Magnesia Liq*) 30 ml PO BID PRN PRN Reason: CONSTIPATION Multivitamins/Minerals (Theragran/Minerals Tab*) 1 tab PO DAILY [facility] Last Admin: 07/03/19 08:48 Dose: 1 tab Oseltamivir Phosphate (Tamiflu Cap*) 30 mg PO BID [facility] Stop: 07/07/19 21:01 Last Admin: 07/03/19 22:07 Dose: 30 mg Polyethylene Glycol/Electrolytes (Miralax (17 Gm Dose [place])) 17 gm PO DAILY PRN PRN Reason: CONSTIPATION Senna (Senokot 8.6 Mg Tab*) 1 tab PO BEDTIME PRN PRN Reason: CONSTIPATION Last Admin: 07/03/19 22:07 Dose: 1 tab Spironolactone (Aldactone Tab*) 25 mg PO DAILY [facility] Last Admin: 07/03/19 08:46 Dose: 25 mg Vital Signs: Temp Pulse Resp BP Pulse Ox 97.4 F 59 18 143/81 96 07/04/19 08:17 07/04/19 08:17 07/04/19 08:17 07/04/19 08:17 07/04/19 08:17 Oxygen Devices in Use Now: Nasal Cannula Appearance: Mr. Robb is an overweight elderly white male who is sitting up in bed. He is awake and appears comfortable. He is responsive and appropriate with very mild dysarthria. Eyes: No Scleral Icterus, PERRLA Ears/Nose/Mouth/Throat: NL Teeth, Lips, Gums, Clear Oropharnyx, - - dry oral mucosa Neck: NL Appearance and Movements; NL JVP, Trachea Midline Respiratory: Symmetrical Chest Expansion and Respiratory Effort, - - end expiratory wheezing Cardiovascular: NL Sounds; No Murmurs; No JVD, RRR Abdominal: NL Sounds; No Tenderness; No Distention, No Hepatosplenomegaly Extremities: No Edema, No Clubbing, Cyanosis Neurological: Alert and Oriented x 3, - - very faint movement in RUE, RLE; sensation intact; ROM intact to LUE, LLE Result Diagrams: 07/04/19 07:22 07/04/19 07:22 Microbiology and Other Data: Microbiology 07/03/19 04:48 Aerobic Blood Culture - Preliminary Blood Venous No Growth Day 1 Anaerobic Blood Culture - Preliminary No Growth Day 1 07/03/19 04:48 Aerobic Blood Culture - Preliminary Blood Venous No Growth Day 1 Anaerobic Blood Culture - Preliminary No Growth Day 1 Assess/Plan/Problems-Billing Assessment: 78 yom PMHx CAD, DM, dementia presents with dysarthria, R hemiparesis and found to have acute L brainstem stroke; hospital course complicated by influenza A. - Patient Problems (1) CVA (cerebral vascular accident) Comment: -pontine infarct -neurology following; thank you for recommendations -repeat CT shows stable infarct -no PFO on echo -DAPT x21d then plavix only -PT, OT, ST; plan for [facility] -[facility] consult in -continue neuro checks (2) Influenza A Comment: -influenza A positive -denies cough, continued wheeze -oseltamivir BID -add on duonebs q4h scheduled (3) Somnolence Comment: -resolved today, although had severe dysarthria overnight -repeat CT brain shows stable infarct -ABG, ammonia unremarkable -suspect waxing, waning due to acute influenza -will reconsult neurology for input (4) Diabetes mellitus Comment: -a.m. BG 125 -continue lispro ss -metformin on hold (5) CAD (coronary artery disease) Comment: -coreg, imdur, atorvastatin, aspirin (6) Abnormal TSH Comment: -mildly low TSH 0.33 -free T4 WNL -no further work up indicated at this time (7) Dementia Comment: -supportive care (8) DVT prophylaxis Comment: -HSQ (9) Full code status Status and Disposition: Inpatient. Discharge when stable. Planning for [facility] placement.
[2019-07-04] MEDS: Spironolactone TAB* 25 MG PO SCH (10:36)
[2019-07-04] MEDS: Clopidogrel TAB* 75 MG PO SCH (10:36)
[2019-07-04] MEDS: Atorvastatin* 40 MG TAB PO SCH (10:36)
[2019-07-04] MEDS: Carvedilol TAB* 6.25 MG PO SCH (10:36)
[2019-07-04] MEDS: Aspirin 81 mg CHEW TAB* 81 MG TAB.CHEW PO SCH (10:36)
[2019-07-04] MEDS: Oseltamivir CAP* 30 MG CAP PO SCH (10:37)
[2019-07-04] MEDS: Multivitamins/Minerals TAB PO SCH (10:37)
[2019-07-04] MEDS: Isosorbide Mononitrate ER TAB* 60 MG PO SCH (10:37)
[2019-07-04] MEDS: amLODIPine TAB* 5 MG PO SCH (10:37)
[2019-07-04] MEDS: CMCS: OMEGA-3 FATTY ACIDS (NF) 1,000 MG CAP PO SCH (10:41)
--- NOTE | 2019-07-04 12:55 | PN ---
Subjective Date of Service: 07/04/19 Length of Stay: 2 Days Neurology is following for stroke. Interval History: The patient continues to wax and wane, typical for the this type of stroke. He also has the flu which also doesn't help his acute phase of recovery. He denied any complaints. He still has significant weakness on the right. He had an episode of trouble speaking last night and had a repeat CT. There has been no change on CT. His SBP is in the 140's. Review of Systems: Denied CP, SOB, or palpitations. Objective Active Medications: Acetaminophen (Tylenol Tab*) 650 mg PO Q6H PRN PRN Reason: FEVER/PAIN Last Admin: 07/03/19 22:07 Dose: 650 mg Albuterol/Ipratropium (Duoneb (Albuterol 2.5 Mg/Ipratropium 0.5 Mg)) 1 neb INH [id number] AWAKE [facility] Last Admin: 07/04/19 07:02 Dose: 1 neb Amlodipine Besylate (Norvasc Tab*) 10 mg PO DAILY [facility] Last Admin: 07/04/19 10:37 Dose: 10 mg Aspirin (Aspirin 81 Mg Chew Tab*) 81 mg PO DAILY [facility] Last Admin: 07/04/19 10:36 Dose: 81 mg Atorvastatin Calcium (Lipitor*) 40 mg PO DAILY [facility] Last Admin: 07/04/19 10:36 Dose: 40 mg Carvedilol (Coreg Tab*) 6.25 mg PO BID [facility] Last Admin: 07/04/19 10:36 Dose: 6.25 mg Clopidogrel Bisulfate (Plavix Tab*) 75 mg PO DAILY [facility] Last Admin: 07/04/19 10:36 Dose: 75 mg Dextrose (D50w Syringe 50 Ml*) 12.5 gm IV PUSH .FOR FS < 60 - SS PRN PRN Reason: FS < 60 Docusate Sodium (Colace Cap*) 100 mg PO BID PRN PRN Reason: CONSTIPATION Last Admin: 07/03/19 22:07 Dose: 100 mg Fish Oil (Fish Oil (Nf)) 1,000 mg PO BID [facility]; Protocol Last Admin: 07/04/19 10:41 Dose: 1,000 mg Heparin Sodium (Porcine) (Heparin Vial(*)) 5,000 units SUBCUT Q8HR [facility] Last Admin: 07/04/19 05:54 Dose: 5,000 units Insulin Human Lispro (Humalog*) 0 units SUBCUT [facility]; Protocol Last Admin: 07/04/19 12:16 Dose: 3 units Isosorbide Mononitrate (Imdur Er Tab*) 240 mg PO DAILY [facility] Last Admin: 07/04/19 10:37 Dose: 240 mg Levothyroxine Sodium (Synthroid Tab*) 75 mcg PO DAILY@0600 [facility] Last Admin: 07/04/19 05:53 Dose: 75 mcg Magnesium Hydroxide (Milk Of Magnesia Liq*) 30 ml PO BID PRN PRN Reason: CONSTIPATION Multivitamins/Minerals (Theragran/Minerals Tab*) 1 tab PO DAILY [facility] Last Admin: 07/04/19 10:37 Dose: 1 tab Oseltamivir Phosphate (Tamiflu Cap*) 30 mg PO BID [facility] Stop: 07/07/19 21:01 Last Admin: 07/04/19 10:37 Dose: 30 mg Polyethylene Glycol/Electrolytes (Miralax (17 Gm Dose [place])) 17 gm PO DAILY PRN PRN Reason: CONSTIPATION Senna (Senokot 8.6 Mg Tab*) 1 tab PO BEDTIME PRN PRN Reason: CONSTIPATION Last Admin: 07/03/19 22:07 Dose: 1 tab Spironolactone (Aldactone Tab*) 25 mg PO DAILY [facility] Last Admin: 07/04/19 10:36 Dose: 25 mg Vital Signs 07/03/19 07/03/19 07/03/19 14:14 19:31 20:09 Temperature 98.3 F 98.6 F Pulse Rate 63 71 65 Respiratory 16 18 18 Rate Blood Pressure 134/73 142/79 (mmHg) O2 Sat by Pulse 94 99 95 Oximetry 07/03/19 07/03/19 07/04/19 20:48 23:59 01:05 Temperature 99.0 F Pulse Rate 66 61 Respiratory 16 16 Rate Blood Pressure 135/73 143/73 (mmHg) O2 Sat by Pulse 94 Oximetry 07/04/19 07/04/19 07/04/19 02:46 08:17 10:57 Temperature 98 F 97.4 F 99.5 F Pulse Rate 54 59 61 Respiratory 20 18 12 Rate Blood Pressure 135/60 143/81 143/92 (mmHg) O2 Sat by Pulse 99 96 100 Oximetry Intake and Output Last 24 Hours 07/02/19 07/03/19 07/04/19 07/05/19 06:59 06:59 06:59 06:59 Intake Total 0 760 0 Output Total 0 550 Balance 0 210 0 Weight 197 lb Intake: Oral 0 760 0 Output: Urine 0 Martinez 0 550 Oxygen Devices in Use Now: Nasal Cannula Neurology Exam: General: Disheveled ill appearing frail man in no distress. HEENT: Normocephelic/atraumatic, sclera anicteric, mucous membranes moist Extremities: No clubbing, cyanosis, or edema Neurological Findings: Awake, alert, and oriented to person, place but not time. He recognized his . Speech: severe spastic dysarthria. Cranial Nerve: diminished sensation on the right. Right facial droop. 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 He was reported to be shoulder shrugging with PT today. Sensation: diminished sensation to light touch on the left Finger to nose intact on the left Gait: deferred Result Diagrams: 07/04/19 07:22 07/04/19 07:22 Microbiology and Other Data: Microbiology 07/03/19 04:48 Aerobic Blood Culture - Preliminary Blood Venous No Growth Day 1 Anaerobic Blood Culture - Preliminary No Growth Day 1 07/03/19 04:48 Aerobic Blood Culture - Preliminary Blood Venous No Growth Day 1 Anaerobic Blood Culture - Preliminary No Growth Day 1 Diagnostic Imaging: TTE: 50-55%. Hypokinesis of the basal-mid inferior myocardium. No PFO. Assessment/Plan Mr. Hernan Robb is a 78-year-old man who presented with sudden onset vomiting, nausea, and right hemiparesis on 07/02/2019. 1. Acute left brainstem ischemic stroke. He continues to experience waxing and waning dysarthria and weakness. He appears to have completed the stroke as he has dense hemiplegia on the right, with minimal movement of the right hand. Etiology: small vessel ischemic stroke. We cannot entirely rule out cardio embolic stroke but this is less likely given that he had a stroke in the same vascular distribution on the left Superior cerebellar and AICA distribution. This would raise the suspicion of a proximal artery to artery emboli from proximal vertebral or basilar artery. He does have known calcification in the left vertebral artery which could explain an artery to artery embolic stroke. NIHSS: 12 (unchanged) Recommendations: - Continue DAPT with aspirin and Plavix 75 mg for a total of 21 days. Then continue Plavix 75 mg monotherapy starting 07/24/2019. - Continue statin therapy (LDL: 54) - Appreciate PT/OT evaluation. - Stroke education completed with the patient's spouse - DVT prophylaxis: SCDs 2. Influenza A- On Oseltamivir. Continue supportive care. The patien tis pending rehabilitation at this time.
[2019-07-04 15:23] VITALS: BP 126/70
--- NOTE | 2019-07-04 23:28 | DS ---
DISCHARGE SUMMARY: ADDENDUM: MEDICATIONS: 1. Acetaminophen 650 mg p.o. q.4 hours p.r.n. 2. Albuterol/ipratropium DuoNeb inhaler 1 inhalation q.4 hours p.r.n. 3. Amlodipine 10 mg p.o. daily. 4. Aspirin 81 mg p.o. daily. 5. Atorvastatin 40 mg p.o. daily. 6. Carvedilol 6.25 mg p.o. b.i.d. 7. Clopidogrel 75 mg p.o. daily. 8. Docusate 100 mg p.o. b.i.d. p.r.n. 9. Heparin subcu 5000 units q.8 hours. 10. Isosorbide mononitrate 240 mg p.o. daily. 11. Levothyroxine 75 mcg p.o. 0600. 12. Magnesium hydroxide 30 mL p.o. b.i.d. p.r.n. 13. Metformin 500 mg p.o. daily. 14. Multivitamin/minerals 1 tab p.o. daily. 15. Oseltamivir 75 mg p.o. b.i.d. 16. Polyethylene glycol 17 g p.o. daily p.r.n. 17. Senna 1 tab p.o. at bedtime p.r.n. 18. Spironolactone 25 mg p.o. daily. KARL FERRARI [id number]/[facility] #: [id number] [facility] CENTERCarlo
--- NOTE | 2019-07-05 00:10 | DS ---
CC: Mary Abrams NP; Dr. Benitez; Dr. Gudino* DISCHARGE SUMMARY/HISTORY AND PHYSICAL: DATE OF ADMISSION: 07/02/[address] [facility] STATUS: 07/04/19 PRIMARY CARE PROVIDER: Mary Abrams NP. NEUROLOGIST: Dr. Benitez. ATTENDING PHYSICIAN: Dr. Gudino* (dictated by KARL Silva). PRIMARY DIAGNOSES: 1. Acute left brain stem ischemic stroke. 2. Influenza A. SECONDARY DIAGNOSES: 1. Coronary artery disease. 2. Diabetes mellitus. 3. Dementia. 4. Asthma. 5. Severe osteoarthritis of bilateral knees. DISCHARGE MEDICATIONS: 1. Acetaminophen 650 mg p.o. q.6 hours p.r.n. fever/pain. 2. Albuterol/ipratropium 1 neb inhalation q.6 hours while awake. 3. Amlodipine 10 mg p.o. daily. 4. Aspirin 81 mg p.o. daily. 5. Atorvastatin 40 mg p.o. daily. 6. Carvedilol 6.25 mg p.o. b.i.d. 7. Clopidogrel 75 mg p.o. daily. 8. Docusate 100 mg p.o. b.i.d. p.r.n. 9. Fish oil 1000 mg p.o. b.i.d. 10. Heparin 5000 units subcu q.8 hours. 11. Isosorbide mononitrate 240 mg p.o. daily. 12. Levothyroxine 75 mcg p.o. daily. 13. Magnesium hydroxide 30 mL p.o. b.i.d. p.r.n. 14. Multivitamin/minerals 1 tab p.o. daily. 15. Oseltamivir 30 mg p.o. b.i.d. 16. Spironolactone 25 mg p.o. daily. STUDIES WHILE IN THE HOSPITAL: 1. CT brain without, impression: No acute intracranial pathology, chronic small vessel ischemic changes, change with bilateral cerebellar encephalomalacia consistent with remote infarct. 2. CTA head and neck, impression: Atherosclerosis, no aneurysm, vascular malformation, occlusion, or stenosis of the visualized intracranial circulation , no internal carotid artery stenosis by NASCET criteria, chronic small vessel ischemic changes. 3. MRI of the brain without, impression: Subacute nonhemorrhagic infarct involving the left laverne extending into the left middle cerebellar peduncle, chronic small vessel ischemic changes, evidence of remote infarcts of the cerebellum. 4. Transthoracic echocardiogram, summary: LV systolic function at lower limits of normal, estimated EF 50% to 55%, hypokinesis of basal, mid, inferior myocardium seen in the A2C view, RV systolic function normal, ventricular septal wall motion has postoperative appearance, trace to mild MR, no evidence of , no significant TR, pulmonary artery systolic pressure cannot be accurately estimated. Compared to study of 09/25/18, there is little change. 5. Chest x-ray, impression: Limited study, no active cardiopulmonary disease. 6. CT brain without, impression: Stable CT exam without evidence for edema/ mass effect related to the pontine infarct documented on MRI, negative for intra or extraaxial hemorrhage, no CT evidence for presence of an interval new intracranial process. 7. CT brain without, impression: No acute intracranial abnormality, multiple chronic infarcts, age-related atrophy, and mild chronic small vessel ischemic disease. HISTORY OF PRESENT ILLNESS/HOSPITAL COURSE: Mr. Robb is a 78-year-old male with a past medical history of CAD, diabetes, dementia who presented to the emergency department on 07/02/19 with dysarthria and right-sided hemiparesis. For full and complete details, please see the history and physical dictated by Dr. Karen Gudino, but in short, the patient presented with these symptoms accompanied by his who provides the details. Neurology was consulted prior to admission and recommended CT of the brain, CTA of the head and neck, and MRI of the brain which were all obtained. CT of the head and CTA of the head and neck were unremarkable while the MRI of the brain showed evidence of a nonhemorrhagic pontine infarct. He was admitted to the hospital with neuro checks q.4 hours. He was placed on aspirin and Plavix. An echocardiogram was obtained and revealed an EF of 50% to 55% with wall motion abnormality that was unchanged from his past echo. A bubble study was done and there was no defect or patent foramen ovale identified. Neurology continued to follow throughout the patient's stay. Lipid panel was obtained and revealed an LDL of 54, suggesting good control. The patient was tested for influenza and came back influenza A positive and therefore he was started on oseltamivir. He will continue on this medication b.i.d. for 5 days. He did work with Physical Therapy during his stay. Physical Therapy recommended subacute rehab, which the patient and his were agreeable to. At this time, the patient will remain inpatient until he is able to be transferred, which should be 7 days after the diagnosis of flu (diagnosed 07/03/19). It is important to note that the patient's hospital stay was complicated by intermittent somnolence and worsening dysarthria. The patient appeared to wax and wane for the first 24 to 36 hours after his infarct and diagnosis of flu. This is suspected to be due to his influenza. On the day of transfer to [facility], the patient has been alert and oriented x3 during the whole day. He is no longer somnolent. This appears to have passed with treatment of his infection. Mr. Robb is stable for transfer to [facility] with plans to discharge to subacute rehab on or after 07/10/19. PHYSICAL EXAMINATION: Vital Signs: Temperature 98.4 temporal, heart rate 59, respiratory rate 20, oxygen saturation 92% on 2 L, blood pressure 126/70. General: Mr. Robb is a well-developed, well-nourished overweight elderly white male who is sitting up in bed. He is awake and appears comfortable. He is responsive and appropriate with very mild dysarthria. HEENT: PERRL. EOMI. Nonicteric sclerae. Hearing is grossly intact. Oral mucous membranes are dry. Pharynx is clear. Tongue is at midline. Palate elevates symmetrically. Face is symmetrical. Pulmonary: Symmetrical chest expansion without use of accessory muscles and expiratory wheezing throughout without rales or rhonchi. Cardiovascular: Regular rate and rhythm with S1, S2 present. No murmurs, rubs , clicks, or gallops. There is no JVD or peripheral edema. Abdomen: Bowel sounds in all quadrants. Soft, nontender to palpation. Extremities: No edema , clubbing, or cyanosis. The patient is able to move left upper and lower extremities without difficulty. There is right-sided hemiparesis. Neuro: The patient is awake. He is alert and oriented x3. Cranial nerves II through XII are grossly intact. The patient has very faint movement of right upper and lower extremities. Sensation appears to be intact. Left upper and lower extremity with 5/5 strength bilaterally. PLAN BY PROBLEM: 1. Left pontine infarct. Continue dual antiplatelet therapy for 21 days, then continue Plavix. Monotherapy starting 07/24/19. Continue statin. Continue PT/ OT. Plan for subacute rehab. [facility] consult ordered. 2. Influenza A. The patient was influenza A positive. He denies cough, but does appear to have continued wheeze. He will continue oseltamivir b.i.d. times a total of 5 days. We will continue DuoNeb q.4 hours. 3. Diabetes mellitus. Continue metformin. 4. Coronary artery disease. Continue carvedilol, Imdur, atorvastatin, and aspirin. 5. Dementia. Supportive care. 6. DVT prophylaxis: Heparin subcu. 7. Code status: Full code. TIME SPENT: Approximately 45 minutes were spent on this admission/discharge, greater than half that time spent [id number] with the patient and his obtaining information. This case has been discussed with my attending Dr. Gudino, who is in agreement with the plan of care. ADDENDUM: MEDICATIONS: 1. Acetaminophen 650 mg p.o. q.4 hours p.r.n. 2. Albuterol/ipratropium DuoNeb inhaler 1 inhalation q.4 hours p.r.n. 3. Amlodipine 10 mg p.o. daily. 4. Aspirin 81 mg p.o. daily. 5. Atorvastatin 40 mg p.o. daily. 6. Carvedilol 6.25 mg p.o. b.i.d. 7. Clopidogrel 75 mg p.o. daily. 8. Docusate 100 mg p.o. b.i.d. p.r.n. 9. Heparin subcu 5000 units q.8 hours. 10. Isosorbide mononitrate 240 mg p.o. daily. 11. Levothyroxine 75 mcg p.o. 0600. 12. Magnesium hydroxide 30 mL p.o. b.i.d. p.r.n. 13. Metformin 500 mg p.o. daily. 14. Multivitamin/minerals 1 tab p.o. daily. 15. Oseltamivir 75 mg p.o. b.i.d. 16. Polyethylene glycol 17 g p.o. daily p.r.n. 17. Senna 1 tab p.o. at bedtime p.r.n. 18. Spironolactone 25 mg p.o. daily. KARL FERRARI [id number]/[facility] #: [id number]/[facility] #: [id number] [facility]
== END 2019-07-04 16:34 | disposition swing bed (61) | DRG 65 ==
LOC: ED 12:50 → MEDTELE 14:47
PROVIDERS: ADMIT Hospitalist; ATTEND Hospitalist
DX: I63.89 Other cerebral infarction (principal); G81.91 Hemiplegia, unspecified affecting right dominant side; E87.2 Acidosis; J10.1 Influenza due to other identified influenza virus with other respiratory manifestations; I25.10 Atherosclerotic heart disease of native coronary artery without angina pectoris; F03.90 Unspecified dementia, unspecified severity, without behavioral disturbance, psychotic disturbance, mood disturbance, and anxiety; J45.909 Unspecified asthma, uncomplicated; M17.0 Bilateral primary osteoarthritis of knee; G93.89 Other specified disorders of brain; R47.1 Dysarthria and anarthria; R47.81 Slurred speech; E78.9 Disorder of lipoprotein metabolism, unspecified; E03.9 Hypothyroidism, unspecified; I10 Essential (primary) hypertension; E78.5 Hyperlipidemia, unspecified; J30.2 Other seasonal allergic rhinitis; E11.36 Type 2 diabetes mellitus with diabetic cataract; H26.9 Unspecified cataract; R40.2412 Glasgow coma scale score 13-15, at arrival to emergency department; I44.0 Atrioventricular block, first degree; R29.712 NIHSS score 12; G89.29 Other chronic pain; I25.2 Old myocardial infarction; Z79.02 Long term (current) use of antithrombotics/antiplatelets; Z79.82 Long term (current) use of aspirin; Z79.890 Hormone replacement therapy; Z95.1 Presence of aortocoronary bypass graft; Z86.73 Personal history of transient ischemic attack (TIA), and cerebral infarction without residual deficits
CPT/HCPCS: 36415; 36600; 70450; 70496; 70498; 70551; 71045; 80048; 80053; 80061; 81003; 81015; 82140; 82607; 82803; 83036; 83605; 84439; 84443; 84484; 85025; 85610; 85730; 87040; 87086; 93005; 93306; 94640; 97112; 99284; A9270-GY; C8929; J1644; Q9967

== ENCOUNTER 2019-07-04 16:34 | Inpatient (IN) | payer MEDICARE ==
[2019-07-04] MEDS ORDERED: Acetaminophen TAB* 325 MG PO PRN (17:49)
[2019-07-04] MEDS ORDERED: Polyethylene Glycol 3350* 17 GM PACKET PO PRN (18:17)
[2019-07-04] MEDS ORDERED: Magnesium Hydroxide LIQ* 30 ML UDC PO PRN (18:17)
[2019-07-04] MEDS ORDERED: Albuterol/Ipratropium NEB.SOL* Albuterol 2.5 MG/Ipratropium 0.5 MG 3 ML INH SCH (19:00)
[2019-07-04] MEDS: Docusate CAP* 100 MG PO PRN (21:43)
[2019-07-04] MEDS: Oseltamivir SUSP 75 MG dose* 75 MG/12.5 ML ORAL.SYRIN PO SCH (21:43)
[2019-07-04] MEDS: Senna TAB 8.6 mg* TAB PO PRN (21:43)
[2019-07-04] MEDS: Carvedilol TAB* 6.25 MG PO SCH (21:43)
[2019-07-04] MEDS: Heparin VIAL(*) 5000 UNITS/ML VIAL (FIVE THOUSAND) SUBCUT SCH (21:43)
[2019-07-04] MEDS ORDERED: Albuterol/Ipratropium NEB.SOL* Albuterol 2.5 MG/Ipratropium 0.5 MG 3 ML INH PRN (22:56)
[2019-07-05] MEDS: Albuterol/Ipratropium NEB.SOL* Albuterol 2.5 MG/Ipratropium 0.5 MG 3 ML INH SCH ×3 (01:35→13:51)
[2019-07-05] MEDS: Heparin VIAL(*) 5000 UNITS/ML VIAL (FIVE THOUSAND) SUBCUT SCH ×3 (05:17→20:43)
[2019-07-05] MEDS: Levothyroxine TAB* 75 MCG TAB PO SCH (05:17)
[2019-07-05] MEDS: Atorvastatin* 40 MG TAB PO SCH (08:57)
[2019-07-05] MEDS: metFORMIN* 500 MG TAB PO SCH (08:57)
[2019-07-05] MEDS: Isosorbide Mononitrate ER TAB* 60 MG PO SCH (08:57)
[2019-07-05] MEDS: Clopidogrel TAB* 75 MG PO SCH (08:57)
[2019-07-05] MEDS: Aspirin 81 mg CHEW TAB* 81 MG TAB.CHEW PO SCH (08:57)
[2019-07-05] MEDS: Carvedilol TAB* 6.25 MG PO SCH ×2 (08:57→20:43)
[2019-07-05] MEDS: Multivitamins/Minerals TAB PO SCH (08:57)
[2019-07-05] MEDS: Spironolactone TAB* 25 MG PO SCH (08:57)
[2019-07-05] MEDS: amLODIPine TAB* 5 MG PO SCH (08:58)
[2019-07-05] MEDS: Oseltamivir SUSP 75 MG dose* 75 MG/12.5 ML ORAL.SYRIN PO SCH ×2 (08:58→20:44)
[2019-07-05] MEDS ORDERED: NON FORMULARY MED* (Amlodipine Besylate [Norvasc] 10 MG) PO SCH (09:00)
[2019-07-05] MEDS ORDERED: LYSINE 500 MG PO SCH (09:00)
[2019-07-05] MEDS ORDERED: Ascorbic Acid TAB* 500 MG PO SCH (09:00)
[2019-07-05] MEDS ORDERED: Cetirizine* 10 MG TAB PO SCH (09:00)
[2019-07-06] MEDS: Levothyroxine TAB* 75 MCG TAB PO SCH (05:13)
[2019-07-06] MEDS: Heparin VIAL(*) 5000 UNITS/ML VIAL (FIVE THOUSAND) SUBCUT SCH ×3 (05:13→21:30)
[2019-07-06] MEDS: amLODIPine TAB* 5 MG PO SCH (09:32)
[2019-07-06] MEDS: Senna TAB 8.6 mg* TAB PO PRN (09:34)
[2019-07-06] MEDS: Multivitamins/Minerals TAB PO SCH (09:35)
[2019-07-06] MEDS: Docusate CAP* 100 MG PO PRN (09:35)
[2019-07-06] MEDS: metFORMIN* 500 MG TAB PO SCH (09:36)
[2019-07-06] MEDS: Clopidogrel TAB* 75 MG PO SCH (09:36)
[2019-07-06] MEDS: Spironolactone TAB* 25 MG PO SCH (09:37)
[2019-07-06] MEDS: Carvedilol TAB* 6.25 MG PO SCH ×2 (09:37→21:30)
[2019-07-06] MEDS: Atorvastatin* 40 MG TAB PO SCH (09:38)
[2019-07-06] MEDS: Aspirin 81 mg CHEW TAB* 81 MG TAB.CHEW PO SCH (09:38)
[2019-07-06] MEDS: Isosorbide Mononitrate ER TAB* 60 MG PO SCH (09:39)
[2019-07-06] MEDS: Oseltamivir SUSP 75 MG dose* 75 MG/12.5 ML ORAL.SYRIN PO SCH ×2 (09:46→21:31)
[2019-07-07] MEDS: Heparin VIAL(*) 5000 UNITS/ML VIAL (FIVE THOUSAND) SUBCUT SCH ×4 (06:28→21:44)
[2019-07-07] MEDS: Levothyroxine TAB* 75 MCG TAB PO SCH ×2 (06:28→06:30)
[2019-07-07] MEDS: amLODIPine TAB* 5 MG PO SCH (09:29)
[2019-07-07] MEDS: Atorvastatin* 40 MG TAB PO SCH (09:30)
[2019-07-07] MEDS: Aspirin 81 mg CHEW TAB* 81 MG TAB.CHEW PO SCH (09:30)
[2019-07-07] MEDS: metFORMIN* 500 MG TAB PO SCH (09:31)
[2019-07-07] MEDS: Spironolactone TAB* 25 MG PO SCH (09:31)
[2019-07-07] MEDS: Clopidogrel TAB* 75 MG PO SCH (09:32)
[2019-07-07] MEDS: Isosorbide Mononitrate ER TAB* 60 MG PO SCH (09:32)
[2019-07-07] MEDS: Multivitamins/Minerals TAB PO SCH (09:32)
[2019-07-07] MEDS: Oseltamivir SUSP 75 MG dose* 75 MG/12.5 ML ORAL.SYRIN PO SCH ×2 (09:48→21:43)
[2019-07-07] MEDS: Carvedilol TAB* 6.25 MG PO SCH ×2 (10:13→21:43)
[2019-07-08] MEDS: Heparin VIAL(*) 5000 UNITS/ML VIAL (FIVE THOUSAND) SUBCUT SCH ×3 (05:51→20:33)
[2019-07-08] MEDS: Levothyroxine TAB* 75 MCG TAB PO SCH (05:51)
[2019-07-08] MEDS: Isosorbide Mononitrate ER TAB* 60 MG PO SCH (09:33)
[2019-07-08] MEDS: Multivitamins/Minerals TAB PO SCH (09:34)
[2019-07-08] MEDS: Atorvastatin* 40 MG TAB PO SCH (09:35)
[2019-07-08] MEDS: Clopidogrel TAB* 75 MG PO SCH (09:36)
[2019-07-08] MEDS: metFORMIN* 500 MG TAB PO SCH (09:36)
[2019-07-08] MEDS: Aspirin 81 mg CHEW TAB* 81 MG TAB.CHEW PO SCH (09:36)
[2019-07-08] MEDS: amLODIPine TAB* 5 MG PO SCH (09:38)
[2019-07-08] MEDS: Carvedilol TAB* 6.25 MG PO SCH ×2 (09:38→20:33)
[2019-07-08] MEDS: Spironolactone TAB* 25 MG PO SCH (09:39)
[2019-07-08] MEDS: Docusate CAP* 100 MG PO PRN (23:24)
[2019-07-08] MEDS: Senna TAB 8.6 mg* TAB PO PRN (23:24)
[2019-07-09] MEDS: Heparin VIAL(*) 5000 UNITS/ML VIAL (FIVE THOUSAND) SUBCUT SCH ×3 (05:49→21:01)
[2019-07-09] MEDS: Levothyroxine TAB* 75 MCG TAB PO SCH (05:50)
[2019-07-09] MEDS: Multivitamins/Minerals TAB PO SCH (08:06)
[2019-07-09] MEDS: Clopidogrel TAB* 75 MG PO SCH (08:06)
[2019-07-09] MEDS: amLODIPine TAB* 5 MG PO SCH (08:06)
[2019-07-09] MEDS: Atorvastatin* 40 MG TAB PO SCH (08:06)
[2019-07-09] MEDS: Aspirin 81 mg CHEW TAB* 81 MG TAB.CHEW PO SCH (08:06)
[2019-07-09] MEDS: Isosorbide Mononitrate ER TAB* 60 MG PO SCH (08:06)
[2019-07-09] MEDS: Spironolactone TAB* 25 MG PO SCH (08:06)
[2019-07-09] MEDS: metFORMIN* 500 MG TAB PO SCH (08:06)
[2019-07-09] MEDS: Carvedilol TAB* 6.25 MG PO SCH ×2 (08:06→21:01)
[2019-07-10] MEDS: Heparin VIAL(*) 5000 UNITS/ML VIAL (FIVE THOUSAND) SUBCUT SCH (05:55)
[2019-07-10] MEDS: Levothyroxine TAB* 75 MCG TAB PO SCH (05:55)
[2019-07-10] MEDS: Isosorbide Mononitrate ER TAB* 60 MG PO SCH (08:06)
[2019-07-10 08:08] VITALS: BP 149/69
[2019-07-10] MEDS: Spironolactone TAB* 25 MG PO SCH (08:09)
[2019-07-10] MEDS: Atorvastatin* 40 MG TAB PO SCH (08:09)
[2019-07-10] MEDS: Clopidogrel TAB* 75 MG PO SCH (08:09)
[2019-07-10] MEDS: metFORMIN* 500 MG TAB PO SCH (08:14)
[2019-07-10] MEDS: Multivitamins/Minerals TAB PO SCH (08:15)
[2019-07-10] MEDS: amLODIPine TAB* 5 MG PO SCH (08:17)
[2019-07-10] MEDS: Aspirin 81 mg CHEW TAB* 81 MG TAB.CHEW PO SCH (08:17)
[2019-07-10] MEDS: Carvedilol TAB* 6.25 MG PO SCH (08:19)
[2019-07-10] MEDS ORDERED: TRIAMCINOLONE 0.025% TOPICAL SCH (09:00)
--- NOTE | 2019-07-10 09:58 | DS ---
CC: Mary Abrams NP; Vijaya Benitez MD * DISCHARGE SUMMARY: DATE OF TRANSFER TO [facility] STATUS: 07/04/19 DATE OF ANTICIPATED DISCHARGE: 07/09/19 PRIMARY CARE PROVIDER: Mary Abrams NP. NEUROLOGIST: Vijaya Benitez MD. ATTENDING PROVIDER: Lyssa Christie MD * (dictated by KARL Silva). PRIMARY DIAGNOSES: 1. Acute pontine ischemic stroke. 2. Influenza A; resolved. 3. Urticarial rash, likely contact dermatitis. SECONDARY DIAGNOSES: 1. Coronary artery disease. 2. Diabetes mellitus. 3. Dementia. 4. Asthma. 5. Severe osteoarthritis, bilateral knees. HOME MEDICATIONS: 1. Amlodipine 10 mg p.o. daily. 2. Ascorbic acid 500 mg p.o. daily. 3. Aspirin 81 mg p.o. daily, discontinue 07/26/19 4. Carvedilol 6.25 mg p.o. b.i.d. 5. Clopidogrel 75 mg p.o. daily. 6. Fexofenadine 180 mg p.o. daily. 7. Isosorbide mononitrate 240 mg p.o. daily. 8. Levothyroxine 75 mcg p.o. daily. 9. Lysine 500 mg p.o. daily. 10. Metformin 500 mg p.o. daily. 11. Multivitamin/minerals 1 tab p.o. daily. 12. [place]-3 fatty acids 1000 mg p.o. b.i.d. 13. Rosuvastatin 20 mg p.o. daily. 14. Spironolactone 25 mg p.o. daily. STUDIES WHILE IN THE HOSPITAL: Please see the discharge summary/history and physical dictated on 07/02/19 for full list and interpretation of imaging. HISTORY OF PRESENT ILLNESS/HOSPITAL COURSE: Mr. Robb is a 78-year-old male with past medical history of CAD, diabetes, dementia, who presented to the ER on 07/02/19 with dysarthria and right-sided hemiparesis. He received a full workup for this and was found to have a left pontine infarct. Neurology was consulted and their final recommendation was aspirin and Plavix for 21 days with Plavix only after that point. He will continue his home dose of statin medication. Physical Therapy worked with the patient and recommended subacute rehab, to which him and his are agreeable. The patient was diagnosed with influenza on 07/03/19. He began treatment at that time due to inability to transfer to subacute rehab within 7 days. The patient remained on swing bed status for 7 days. He continued working with Physical Therapy and Occupational Therapy. The plan is for discharge to [facility] tomorrow for subacute rehab as he has completed 7 days of inpatient stay. Last documented fever is T-max of 100.2 at 0330 on 07/03/19. There is no leukocytosis. The patient continues to have some cough that is occasionally productive, but no other complaints. He is on room air at this time. He was noted to have an urticarial rash on the back and buttocks. He reports that the area is pruritic. PHYSICAL EXAMINATION: General: Mr. Robb is a well-developed, well-nourished , overweight older white male who is sitting up in bed. He is mildly dysarthric but answers questions appropriately. He is breathing comfortably on room air. HEENT: PERRL/EOMI, visual gutierrez are grossly intact. The sclerae are nonicteric. There is no injection. Hearing is grossly intact. Oral mucous members are moist. There are no lesions. Pharynx is clear. Tongue is at midline. Palate elevates symmetrically. Cardiovascular: Regular rate and rhythm with S1 and S2 present. There are no murmurs, rubs, clicks, or gallops. There is no JVD or peripheral edema. Pulmonary: Symmetrical chest expansion without use of accessory muscles, clear to auscultation bilaterally. No rhonchi , wheeze, or rales. Abdomen: Bowel sounds in all quadrants, soft, nontender to palpation. Skin: Urticarial rash down the length of the back and on b/l buttock. There are no lesions, open areas, excoriations, vesicles, or drainage. The area is nontender to palpation, without excessive warmth. Neuro : The patient is awake, is alert and oriented x3. Cranial nerves II through XII are grossly intact. The left upper and left lower extremities have full range of motion of 5/5 strength. Right elbow with improved elbow flexion and extension and good wrist flexion and extension. He is unable to abduct his arm beyond approximately 30 degrees due to residual CVA deficit. Left lower extremity with minimal, faint movements noted. Vital Signs: Temperature 97.5 oral, heart rate 58, respiratory rate 14, oxygen saturation 95% on room air, blood pressure 145/79. DISCHARGE PLAN: Mr. Robb will be discharged to [facility]. Condition good. DIET: 1. Heart healthy. 2. ADA/diabetic. ACTIVITY: 1. As tolerated. 2. Continue to work with PT/OT at [facility]. MEDICATIONS: 1. Changes as above. 2. Discontinue aspirin 07/24/19 and continue Plavix at bedtime. 3. Continue triamcinolone cream application b.i.d. x 7 days to back and buttocks. EDUCATION: 1. Follow up with [place] provider upon arrival. 2. Follow up with primary care provider within 1 week of discharge from [place]. 3. Return to the ER for any concerns. This is a summarized report of a complex medical history and hospital stay. For further details, please see entire medical record. TIME SPENT: Approximately 30 minutes were spent on this discharge, greater than half that time spent [id number] with the patient and his discussing discharge plans and instructions. KARL FERRARI [id number]/CPS #: [id number] ISAEL
== END 2019-07-10 11:55 | DRG 65 ==
LOC: MEDTELE 16:34 → UNDOADMIN 16:34 → MEDTELE 17:49
PROVIDERS: ADMIT Hospitalist; ATTEND Internal Medicine
DX: I63.29 Cerebral infarction due to unspecified occlusion or stenosis of other precerebral arteries (principal); G81.91 Hemiplegia, unspecified affecting right dominant side; R47.1 Dysarthria and anarthria; J10.1 Influenza due to other identified influenza virus with other respiratory manifestations; L25.9 Unspecified contact dermatitis, unspecified cause; I25.10 Atherosclerotic heart disease of native coronary artery without angina pectoris; E11.9 Type 2 diabetes mellitus without complications; Z75.1 Person awaiting admission to adequate facility elsewhere; F03.90 Unspecified dementia, unspecified severity, without behavioral disturbance, psychotic disturbance, mood disturbance, and anxiety; J45.909 Unspecified asthma, uncomplicated; M17.0 Bilateral primary osteoarthritis of knee; Z79.01 Long term (current) use of anticoagulants; Z79.82 Long term (current) use of aspirin; Z79.51 Long term (current) use of inhaled steroids; Z79.899 Other long term (current) drug therapy; I69.398 Other sequelae of cerebral infarction; G93.89 Other specified disorders of brain
CPT/HCPCS: 94640; 97112; A9270-GY; G0515-GO; J1644